=== PATIENT | male | born 1985 | race Caucasian/White ===

== ENCOUNTER → 2016-05-17 | Outpatient (CLI) | payer MEDICAID | LOC: M OUTALCOH 09:16 | PROVIDERS: ATTEND Psychiatry & Neurology Psychiatry | DX: Z13.9 Encounter for screening, unspecified (principal); F14.20 Cocaine dependence, uncomplicated; F12.20 Cannabis dependence, uncomplicated ==

== ENCOUNTER 2016-05-18 10:36 | Emergency (ER) | payer MEDICAID ==
[2016-05-18 11:48] LABS: MEAN CORPUSCULAR HEMOGLOBIN 30.3 pg (27.0-33.0); MEAN CORPUSCULAR HGB CONC 34.4 g/dl (32.0-36.5); MEAN CORPUSCULAR VOLUME 88.1 fl (80.0-96.0); RED CELL DISTRIBUTION WIDTH 12.4 % (11.5-14.5); WHITE BLOOD COUNT 4.3 K/mm3 (4.0-10.0)
[2016-05-18 12:16] LABS: ALBUMIN 4.1 GM/DL (3.2-5.2); ALBUMIN/GLOBULIN RATIO 1.52 (1.00-1.93); ALKALINE PHOSPHATASE 57 U/L (45-117); ALT/SGPT 21 U/L (12-78); ANION GAP 8 MEQ/L (8-16); AST/SGOT 14 U/L (15-37); BILIRUBIN,DIRECT 0.2 MG/DL (0.0-0.2); BILIRUBIN,TOTAL 0.8 MG/DL (0.2-1.0); BLOOD UREA NITROGEN 14 MG/DL (7-18); CALCIUM LEVEL 8.9 MG/DL (8.5-10.1); CARBON DIOXIDE LEVEL 29 MEQ/L (21-32); CHLORIDE LEVEL 105 MEQ/L (98-107); CREATININE FOR GFR 1.28 MG/DL (0.70-1.30); GLOMERULAR FILTRATION RATE > 60.0 (>60); GLUCOSE, FASTING 98 MG/DL (70-105); POTASSIUM SERUM 4.5 MEQ/L (3.5-5.1); SODIUM LEVEL 142 MEQ/L (136-145); TOTAL PROTEIN 6.8 GM/DL (6.4-8.2)
[2016-05-18 12:56] LABS: AMPHETAMINES LEVEL URINE NEGATIVE (NEGATIVE); BENZODIAZEPINES URINE NEGATIVE (NEGATIVE); COCAINE METABOLITE URINE POSITIVE (NEGATIVE); CONTROL LINE INT CTR LINE PRESENT; METHADONE URINE NEGATIVE (NEGATIVE); OPIATES URINE NEGATIVE (NEGATIVE); TRICYCLIC ANTIDEPRESS URINE NEGATIVE (NEGATIVE)
--- NOTE | 2016-05-18 13:58 | EDDOCDS ---
Physician Documentation [facility] Name: Renny Lazo Age: 30 yrs Sex: Male : 1985 Arrival Date: 05/18/2016 Time: 10:36 Bed U3 Private MD: No Pcp Disposition: 05/18/16 13:32 Discharged to Home/Self Care. Impression: Anxiety disorder, unspecified. - Condition is Stable. - Discharge Instructions: Depression, Adult, Generalized Anxiety Disorder. - Medication Reconciliation, Local Pharmacy Hours form. - Follow up: [facility]; When: 4 - 5 days; Reason: Recheck today's complaints. - Problem is new. - Symptoms have improved. - Notes: You were seen in the ED for a mental health evaluation with concerns for anxiety. Bloodwork showed no acute findings, drug screen was positive for cocaine and marijuana. Psychiatry was consulted and recommended you may return home to be seen for outpatient follow-up. Please call as directed by your psychosocial assesor and arrange to be seen. Return to the ED for any worsening depression, thoughts of harming self or others or any other concerns. Historical: - Allergies: no known allergies; - Home Meds: 1. amoxicillin 500 mg Oral cap 1 cap every 8 hours (Last dose: 05/18/2016 07:00) 2. Motrin 800 mg Oral tab 1 tab 3 times per day (Last dose: 05/18/2016 07:00) - PMHx: Substance Abuse; - PSHx: none; - Social history: Smoking status: Patient states was never smoker of tobacco. Patient uses street drugs, marijuana, cocaine, No barriers to communication noted, Speaks appropriately for age. - Family history: Not pertinent. - : The pt / caregiver states he / she is not on anticoagulants. Home medication list is obtained from. - Exposure Risk Screening:: None identified. Vital Signs: 05/18 10:38 BP 106 / 70; Pulse 56; Resp 18; Temp 98.9; Pulse Ox 100% ; Weight 81.65 kg / 180.01 elp lbs; Height 6 ft. 3 in. (190.50 cm); Pain 0/10; 13:52 BP 133 / 88; Pulse 58; Resp 16; Temp 98.7(TE); Pulse Ox 98% on R/A; jo3 10:38 Body Mass Index 22.50 (81.65 kg, 190.50 cm) elp MDM: 11:03 Consult PFS/PSA/Power Plant Operator Apprentice ordered. br1 11:03 Consult PFS/PSA/Power Plant Operator Apprentice: Patient's case requires discussion with on-call br1 Psychiatrist ordered. 11:03 PSA/PFS to call Nursing Drawing Tracer, to enter patient data on [place] Safe Act if patient br1 involuntarily admitted or transferred for SI or HI ordered. 11:03 Confirm accurate psychiatric medication list and times of last dosage ordered. br1 11:03 Detain Pt Until Medically/PFS Cleared ordered. br1 11:04 Acetaminophen Level Ordered. EDMS 11:04 Basic Metabolic Profile Ordered. EDMS 11:04 Complete Blood Count Ordered. EDMS 11:04 Drug Eval Toxicology ED Only Ordered. EDMS 11:04 Ethyl Alcohol (ethanol) Ordered. EDMS 11:04 Liver Profile Ordered. EDMS 11:04 Salicylate Level Ordered. EDMS 11:04 Thyroid Stimulating Hormone Ordered. EDMS 11:23 Financial registration complete. pm4 11:30 REGULAR DIET PLASTIC GAINES+DIET ordered. EDMS 12:00 [facility] Payment Agreement was scanned into [employer] and attached to record. pm4 13:28 Acetaminophen Level Reviewed. br1 13:28 Drug Eval Toxicology ED Only Reviewed. br1 13:28 Liver Profile Reviewed. br1 13:28 Salicylate Level Reviewed. br1 13:28 Basic Metabolic Profile Reviewed. br1 13:28 Complete Blood Count Reviewed. br1 13:28 Ethyl Alcohol (ethanol) Reviewed. br1 13:28 Thyroid Stimulating Hormone Reviewed. br1 13:29 Consult PFS/PSA/Socail Worker: Cleared medically for eval ordered. br1 Signatures: Dispatcher [employer] EDMS Pauline SilvaRN RN jo3 Matias Pan MD MD br1 Dontrell Patton RN RN ml6 Eze Ramirez, Reg Reg pm4 The chart was reviewed and I authenticate all verbal orders and agree with the evaluation and treatment provided.Attachments: 12:00 [facility] Payment Agreement pm4 MTDD
--- NOTE | 2016-05-18 13:58 | EDDOCDS ---
Nurse's Notes [facility] Name: Renny Lazo Age: 30 yrs Sex: Male : 1985 Arrival Date: 05/18/2016 Time: 10:36 Bed [facility]3 Private MD: No Pcp Diagnosis: Anxiety disorder, unspecified Presentation: 05/18 10:38 Presenting complaint: Patient states: states that he has a bed at [facility] for rehab ml6 for crack cocaine abuse, states that he is anxious and afraid he is going to use before then. Patient denies SI or HI. Presenting complaint:. Mental Health Triage Level: Level 1- Pt displays no suicidal or homicidal ideations and does not appear to be a danger to self or others. Adult Sepsis Screening: The patient does not have new or worsening altered mentation. Patient's respiratory rate is less than 22. Systolic blood pressure is greater than 100. Patient has a qSOFA score of 0- Negative Sepsis Screen. Suicide/Homicide risk assessment- the patient denies having any suicidal and/or homicidal ideations and does not present with any other emotional, behavioral or mental health complaints. Status: Patient is not a service line bus cleaner or dependent. Transition of care: patient was not received from another setting of care. Red Flag criteria, patient assessed and taken directly to a bed. 10:38 Acuity: ROB Level 4 ml6 10:38 Method Of Arrival: Walkin/Carried/Asstd ml6 Triage Assessment: 10:53 General: Appears in no apparent distress, Behavior is appropriate for age, cooperative. ml6 Pain: Denies pain. HIV screening NA for this visit Offered previously. Neurological: No deficits noted. Level of Consciousness is awake, alert, Oriented to person, place, time, Front Office Assistant are equal bilaterally Moves all extremities. Full function. Cardiovascular: Capillary refill < 3 seconds is brisk in bilateral fingers toes Heart tones S1 S2 present. Respiratory: No deficits noted. Airway is patent Respiratory effort is even, unlabored, Respiratory pattern is regular, symmetrical. GI: No deficits noted. Historical: - Allergies: no known allergies; - Home Meds: 1. amoxicillin 500 mg Oral cap 1 cap every 8 hours (Last dose: 05/18/2016 07:00) 2. Motrin 800 mg Oral tab 1 tab 3 times per day (Last dose: 05/18/2016 07:00) - PMHx: Substance Abuse; - PSHx: none; - Social history: Smoking status: Patient states was never smoker of tobacco. Patient uses street drugs, marijuana, cocaine, No barriers to communication noted, Speaks appropriately for age. - Family history: Not pertinent. - : The pt / caregiver states he / she is not on anticoagulants. Home medication list is obtained from. - Exposure Risk Screening:: None identified. Screenin:27 Screening information is obtained from the patient. Fall risk: No risks identified. jo3 Assistance ADL's: requires no assistance with activities of daily living. Abuse/DV Screen: The patient / caregiver reports he/she is: not in a situation that causes fear, pain or injury. Nutritional screening: No deficits noted. Advance Directives: There is no active DNR order. home support is adequate. Assessment: 11:31 General: Appears in no apparent distress, Behavior is anxious, cooperative, pleasant. jo3 General: Pt denies SI/HI. States that he uses "a lot" of crack cocaine on a daily basis and has not used for 2 days. Has a bed at treatment facility on Saturday . Neurological: Level of Consciousness is awake, alert, Oriented to person, place, time. Cardiovascular: No deficits noted. Respiratory: Airway is patent Respiratory effort is even, unlabored. Derm: Skin is pink, warm & dry. 12:25 Reassessment: Patient appears in no apparent distress at this time. Patient denies pain jo3 at this time. Security observing. Mother at bedside . 13:27 General: Appears in no apparent distress, comfortable, Behavior is anxious, jo3 cooperative, pleasant. General: Security observing. Neurological: No deficits noted. Respiratory: No deficits noted. Airway is patent Respiratory effort is even, unlabored. Mental Health Eval: 12:29 Mental health consult is initiated at 11:30. Status: The patient is not a service line bus cleaner or dependent. [facility] Behavioral Health: The patient is established as a patient of [facility] Behavioral Health. Referral Information: Evaluation referral is generated by the patient himself / herself. The patient was referred for evaluation because Pt states he is scheduled to go to rehab for methamphetamine use on Saturday at [facility]. Pt states it was recommended that he receive a "psychological evaluation" for his anxiety prior to his admission. Subjective: The patients chief complaint is I started having panic attacks after stopping crack. I am going to [facility] on Saturday, but I was told to come here. I'm not suicidal or homicidal, I'm just having a lot of anxiety. 12:57 Disposition: Medically cleared for disposition by Matias Pan MD Psychiatric Consult ac is performed by phone with Dr Juan Palma. Vital Signs: 10:38 BP 106 / 70; Pulse 56; Resp 18; Temp 98.9; Pulse Ox 100% ; Weight 81.65 kg; Height 6 elp ft. 3 in. (190.50 cm); Pain 0/10; 13:52 BP 133 / 88; Pulse 58; Resp 16; Temp 98.7(TE); Pulse Ox 98% on R/A; jo3 10:38 Body Mass Index 22.50 (81.65 kg, 190.50 cm) elp Vitals: 10:38 Log In Time: May 18, 2016 at 10:36. RN notified that patient meets Red Flag elp criteria. ED Course: 10:37 Patient visited by Ruby Romero PCA. elp 10:37 No Pcp is Private Physician. elp 10:37 Patient moved to Waiting elp 10:38 Patient visited by Ruby Romero PCA. elp 10:40 Patient moved to [facility] ml6 10:44 Matias Pan MD is Attending Physician. br1 10:50 Triage Initiated ml6 10:56 Patient visited by Francisco Lacey. dpm 11:02 Patient visited by Matias Pan MD. br1 11:06 Pt greeted and oriented to ED. Patient advised of names of staff involved in care, dpm location of call more[place], wait times and NPO status. Patient has correct armband on for positive identification. Bed in low position. Side rails up X 1. Security observing. Property left with pt per RNOctav[place]. PT mental health triage doesn't require the pt to change. Psych Safety Check: Location: Psych Room. Visual Assessment: Cooperative. 11:20 Patient visited by Francisco Lacey. dpm 11:25 Labs drawn. (by ED staff). Sent per order to lab. jo3 11:28 Acetaminophen Level Sent. jo3 11:28 Basic Metabolic Profile Sent. jo3 11:28 Complete Blood Count Sent. jo3 11:28 Drug Eval Toxicology ED Only Sent. jo3 11:28 Ethyl Alcohol (ethanol) Sent. jo3 11:28 Liver Profile Sent. jo3 11:28 Salicylate Level Sent. jo3 11:28 Thyroid Stimulating Hormone Sent. jo3 11:30 Patient visited by Francisco Lacey. dpm 11:32 Patient visited by Pauline Silva,REDDY. jo3 11:34 Patient name changed from Renny\\S\\\\S\\Clifton\\S\\ to Renny\\S\\Marvel\\S\\Clifton. EDMS 11:50 Patient visited by Francisco Lacey. dpm 12:00 [facility] Payment Agreement was scanned into [employer] and attached to record. pm4 12:07 Patient visited by Dontrell Patton RN. ml6 12:28 Patient visited by Francisco Lacey. dpm 12:29 Placed in psych safe attire. requested the pt to be changed. Property dpm removed, inventory done, secured in belongings bag- placed in locked locker. Placed in locker 3. 12:45 Patient visited by Francisco Lacey. dpm 13:27 The patient / caregiver is instructed regarding the plan of care and ED course. jo3 13:27 No IV's were initiated during this patient's visit. jo3 13:28 Patient visited by Pauline Silva RN. jo3 13:31 [facility] is Referral Physician. br1 13:52 No procedures done that require assistance. jo3 Order Results: Lab Order: Acetaminophen Level; SPEC'M 05/18/16 11:24 Test: ACETAMINOPHEN LEVEL; Value: < 2.0; Range: 10.0-30.0; Abnormal: Below low normal; Units: UG/ML; Status: F Lab Order: Basic Metabolic Profile; SPEC'M 05/18/16 11:24 Test: GLUCOSE, FASTING; Value: 98; Range: 70-105; Units: MG/DL; Status: F Test: BLOOD UREA NITROGEN; Value: 14; Range: 7-18; Units: MG/DL; Status: F Test: CREATININE FOR GFR; Value: 1.28; Range: 0.70-1.30; Units: MG/DL; Status: F Test: GLOMERULAR FILTRATION RATE; Value: > 60.0; Range: >60; Status: F Test: SODIUM LEVEL; Value: 142; Range: 136-145; Units: MEQ/L; Status: F Test: POTASSIUM SERUM; Value: 4.5; Range: 3.5-5.1; Units: MEQ/L; Status: F Test: CHLORIDE LEVEL; Value: 105; Range: 98-107; Units: MEQ/L; Status: F Test: CARBON DIOXIDE LEVEL; Value: 29; Range: 21-32; Units: MEQ/L; Status: F Test: ANION GAP; Value: 8; Range: 8-16; Units: MEQ/L; Status: F Test: CALCIUM LEVEL; Value: 8.9; Range: 8.5-10.1; Units: MG/DL; Status: F Test Note: ; Units are mL/min/1.73 m2 Chronic Kidney Disease Staging per NKF: Stage I & II GFR >=60 Normal to Mildly Decreased Stage III GFR 30-59 Moderately Decreased Stage IV GFR 15-29 Severely Decreased Stage V GFR <15 Very Little GFR Left ESRD GFR <15 on TOP LIFT COMPRESSER Lab Order: Complete Blood Count; SPEC'M 05/18/16 11:24 Test: WHITE BLOOD COUNT; Value: 4.3; Range: 4.0-10.0; Units: K/mm3; Status: F Test: RED BLOOD COUNT; Value: 5.55; Range: 4.30-6.10; Units: M/mm3; Status: F Test: HEMOGLOBIN; Value: 16.8; Range: 14.0-18.0; Units: g/dl; Status: F Test: HEMATOCRIT; Value: 48.9; Range: 42.0-52.0; Units: %; Status: F Test: MEAN CORPUSCULAR VOLUME; Value: 88.1; Range: 80.0-96.0; Units: fl; Status: F Test: MEAN CORPUSCULAR HEMOGLOBIN; Value: 30.3; Range: 27.0-33.0; Units: pg; Status: F Test: MEAN CORPUSCULAR HGB CONC; Value: 34.4; Range: 32.0-36.5; Units: g/dl; Status: F Test: RED CELL DISTRIBUTION WIDTH; Value: 12.4; Range: 11.5-14.5; Units: %; Status: F Test: PLATELET COUNT, AUTOMATED; Value: 249; Range: 150-450; Units: k/mm3; Status: F Lab Order: Drug Eval Toxicology ED Only; SPEC'M 05/18/16 11:24 Test: AMPHETAMINES LEVEL URINE; Value: NEGATIVE; Range: NEGATIVE; Status: F Test: BARBITURATES URINE; Value: NEGATIVE; Range: NEGATIVE; Status: F Test: BENZODIAZEPINES URINE; Value: NEGATIVE; Range: NEGATIVE; Status: F Test: CANNABINOIDS URINE; Value: POSITIVE; Range: NEGATIVE; Abnormal: Above high normal; Status: F Test: COCAINE METABOLITE URINE; Value: POSITIVE; Range: NEGATIVE; Abnormal: Above high normal; Status: F Test: METHADONE URINE; Value: NEGATIVE; Range: NEGATIVE; Status: F Test: OPIATES URINE; Value: NEGATIVE; Range: NEGATIVE; Status: F Test: TRICYCLIC ANTIDEPRESS URINE; Value: NEGATIVE; Range: NEGATIVE; Status: F Test Note: ; FALSE POSITIVE RESULTS CAN BE CAUSED BY THE USE OF PANTOPRAZOLE (PROTONIX). Lab Order: Ethyl Alcohol (ethanol); SPEC'M 05/18/16 11:24 Test: ETHYL ALCOHOL (ETHANOL); Value: 0.004; Range: 0.000-0.010; Units: %; Status: F Lab Order: Liver Profile; SPEC'M 05/18/16 11:24 Test: AST/SGOT; Value: 14; Range: 15-37; Abnormal: Below low normal; Units: U/L; Status: F Test: ALT/SGPT; Value: 21; Range: 12-78; Units: U/L; Status: F Test: ALKALINE PHOSPHATASE; Value: 57; Range: 45-117; Units: U/L; Status: F Test: BILIRUBIN,TOTAL; Value: 0.8; Range: 0.2-1.0; Units: MG/DL; Status: F Test: BILIRUBIN,DIRECT; Value: 0.2; Range: 0.0-0.2; Units: MG/DL; Status: F Test: TOTAL PROTEIN; Value: 6.8; Range: 6.4-8.2; Units: GM/DL; Status: F Test: ALBUMIN; Value: 4.1; Range: 3.2-5.2; Units: GM/DL; Status: F Test: ALBUMIN/GLOBULIN RATIO; Value: 1.52; Range: 1.00-1.93; Status: F Lab Order: Salicylate Level; SPEC'M 05/18/16 11:24 Test: SALICYLATE LEVEL; Value: < 1.7; Range: 5.0-30.0; Abnormal: Below low normal; Units: MG/DL; Status: F Lab Order: Thyroid Stimulating Hormone; SPEC'M 05/18/16 11:24 Test: THYROID STIMULATING HORMONE; Value: 0.736; Range: 0.358-3.740; Units: uIU/ML; Status: F Outcome: 13:32 Discharge ordered by Provider. br1 13:52 Discharge Assessment: Patient awake, alert and oriented x 3. No cognitive and/or jo3 functional deficits noted. Patient verbalized understanding of disposition instructions. patient administered narcotics - no. The following High Risk Discharge criteria are identified: None. Discharged to home ambulatory, with parent. Condition: stable. No special radiology studies were completed. 13:57 Patient left the ED. jo3 Signatures: Dispatcher [employer] EDMS Shay Lima, PSA PSA ac Pauline Silva RN RN jo3 Matias Pan MD MD br1 Dontrell Patton RN RN ml6 Francisco Lacey dpRuby Henderson, JAKOB SHIPBUILDING DRAFTSPERSON elEze Awad, Reg Reg pm4 Corrections: (The following items were deleted from the chart) 13:34 12:29 Subjective: The patients chief complaint is I started having panic attacks after ac stopping meth. I am going to [facility] on Saturday, but I was told to come here. I'm not suicidal or homicidal, I'm just having a lot of anxiety. ac MTDD
--- NOTE | 2016-05-20 14:58 | EDDOCDS ---
Nurse's Notes [facility] Name: Renny Lazo Age: 30 yrs Sex: Male : 1985 Arrival Date: 05/18/2016 Time: 10:36 Bed [facility] Private MD: No Pcp Diagnosis: Anxiety disorder, unspecified Presentation: 05/18 10:38 Presenting complaint: Patient states: states that he has a bed at [facility] for rehab ml6 for crack cocaine abuse, states that he is anxious and afraid he is going to use before then. Patient denies SI or HI. Presenting complaint:. Mental Health Triage Level: Level 1- Pt displays no suicidal or homicidal ideations and does not appear to be a danger to self or others. Adult Sepsis Screening: The patient does not have new or worsening altered mentation. Patient's respiratory rate is less than 22. Systolic blood pressure is greater than 100. Patient has a qSOFA score of 0- Negative Sepsis Screen. Suicide/Homicide risk assessment- the patient denies having any suicidal and/or homicidal ideations and does not present with any other emotional, behavioral or mental health complaints. Status: Patient is not a services tech or dependent. Transition of care: patient was not received from another setting of care. Red Flag criteria, patient assessed and taken directly to a bed. 10:38 Acuity: ROB Level 4 ml6 10:38 Method Of Arrival: Walkin/Carried/Asstd ml6 Triage Assessment: 10:53 General: Appears in no apparent distress, Behavior is appropriate for age, cooperative. ml6 Pain: Denies pain. HIV screening NA for this visit Offered previously. Neurological: No deficits noted. Level of Consciousness is awake, alert, Oriented to person, place, time, Test Rack Operator are equal bilaterally Moves all extremities. Full function. Cardiovascular: Capillary refill < 3 seconds is brisk in bilateral fingers toes Heart tones S1 S2 present. Respiratory: No deficits noted. Airway is patent Respiratory effort is even, unlabored, Respiratory pattern is regular, symmetrical. GI: No deficits noted. Historical: - Allergies: no known allergies; - Home Meds: 1. amoxicillin 500 mg Oral cap 1 cap every 8 hours (Last dose: 05/18/2016 07:00) 2. Motrin 800 mg Oral tab 1 tab 3 times per day (Last dose: 05/18/2016 07:00) - PMHx: Substance Abuse; - PSHx: none; - Social history: Smoking status: Patient states was never smoker of tobacco. Patient uses street drugs, marijuana, cocaine, No barriers to communication noted, Speaks appropriately for age. - Family history: Not pertinent. - : The pt / caregiver states he / she is not on anticoagulants. Home medication list is obtained from. - Exposure Risk Screening:: None identified. Screenin:27 Screening information is obtained from the patient. Fall risk: No risks identified. jo3 Assistance ADL's: requires no assistance with activities of daily living. Abuse/DV Screen: The patient / caregiver reports he/she is: not in a situation that causes fear, pain or injury. Nutritional screening: No deficits noted. Advance Directives: There is no active DNR order. home support is adequate. Assessment: 11:31 General: Appears in no apparent distress, Behavior is anxious, cooperative, pleasant. jo3 General: Pt denies SI/HI. States that he uses "a lot" of crack cocaine on a daily basis and has not used for 2 days. Has a bed at treatment facility on Saturday . Neurological: Level of Consciousness is awake, alert, Oriented to person, place, time. Cardiovascular: No deficits noted. Respiratory: Airway is patent Respiratory effort is even, unlabored. Derm: Skin is pink, warm & dry. 12:25 Reassessment: Patient appears in no apparent distress at this time. Patient denies pain jo3 at this time. Security observing. Mother at bedside . 13:27 General: Appears in no apparent distress, comfortable, Behavior is anxious, jo3 cooperative, pleasant. General: Security observing. Neurological: No deficits noted. Respiratory: No deficits noted. Airway is patent Respiratory effort is even, unlabored. Mental Health Eval: 12:29 Mental health consult is initiated at 11:30. Status: The patient is not a services tech or dependent. [facility] Behavioral Health: The patient is established as a patient of [facility] Behavioral Health. Referral Information: Evaluation referral is generated by the patient himself / herself. The patient was referred for evaluation because Pt states he is scheduled to go to rehab for methamphetamine use on Saturday at [facility]. Pt states it was recommended that he receive a "psychological evaluation" for his anxiety prior to his admission. Subjective: The patients chief complaint is I started having panic attacks after stopping crack. I am going to [facility] on Saturday, but I was told to come here. I'm not suicidal or homicidal, I'm just having a lot of anxiety. 12:57 Disposition: Medically cleared for disposition by Matias Pan MD Psychiatric Consult ac is performed by phone with Dr Juan Palma. 14:20 Mental Health history: no relevant mental health problems or treatments. Mental Health ac Admissions: None. Current Outpatient Mental Health Services: None. Current living environment is The patient currently lives with his / her father, . Patient presents to Emergency Department with the following symptoms within the past 2 weeks: anxiety, drug abuse. Substance abuse: Patient uses cocaine, Patient uses marijuana. Mental status exam: Patients appearance is appropriate, Patient's behavior is cooperative, Speech is normal. Affect is appropriate. Mood is anxious. Hallucinations are denied. Appetite is normal. Memory is good. Energy level is normal. Content of thought is normal. Thought process is intact. Cognitive level is oriented to person, place, time and situation Patient's insight is fair. Judgement is fair. Rapport with interviewer is good. Suicidal Ideation is not present. Homicidal ideation is not present. [facility] Admission Criteria: Not Applicable. DSM-V Differential Diagnosis: Social Communication Disorder. Stimulant Use Disorder, Pt uses cocaine. Vital Signs: 10:38 BP 106 / 70; Pulse 56; Resp 18; Temp 98.9; Pulse Ox 100% ; Weight 81.65 kg; Height 6 elp ft. 3 in. (190.50 cm); Pain 0/10; 13:52 BP 133 / 88; Pulse 58; Resp 16; Temp 98.7(TE); Pulse Ox 98% on R/A; jo3 10:38 Body Mass Index 22.50 (81.65 kg, 190.50 cm) elp Vitals: 10:38 Log In Time: May 18, 2016 at 10:36. RN notified that patient meets Red Flag elp criteria. ED Course: 10:37 Patient visited by Ruby Romero PCA. elp 10:37 No Pcp is Private Physician. elp 10:37 Patient moved to Waiting elp 10:38 Patient visited by Ruby Romero PCA. elp 10:40 Patient moved to [facility] ml6 10:44 Matias Pan MD is Attending Physician. br1 10:50 Triage Initiated ml6 10:56 Patient visited by Francisco Lacey. dpm 11:02 Patient visited by Matias Pan MD. br1 11:06 Pt greeted and oriented to ED. Patient advised of names of staff involved in care, dpm location of call moreno, wait times and NPO status. Patient has correct armband on for positive identification. Bed in low position. Side rails up X 1. Security observing. Property left with pt per RN, Octaviano Patton. PT mental health triage doesn't require the pt to change. Psych Safety Check: Location: Psych Room. Visual Assessment: Cooperative. 11:20 Patient visited by Francisco Lacey. dpm 11:25 Labs drawn. (by ED staff). Sent per order to lab. jo3 11:28 Acetaminophen Level Sent. jo3 11:28 Basic Metabolic Profile Sent. jo3 11:28 Complete Blood Count Sent. jo3 11:28 Drug Eval Toxicology ED Only Sent. jo3 11:28 Ethyl Alcohol (ethanol) Sent. jo3 11:28 Liver Profile Sent. jo3 11:28 Salicylate Level Sent. jo3 11:28 Thyroid Stimulating Hormone Sent. jo3 11:30 Patient visited by Francisco Lacey. dpm 11:32 Patient visited by Pauline Silva RN. jo3 11:34 Patient name changed from Renny\\S\\\\S\\Cook\\S\\ to Renny\\S\\Marvel\\S\\Clifton. EDMS 11:50 Patient visited by Francisco Lacey. dpm 12:00 [facility] Payment Agreement was scanned into [employer] and attached to record. pm4 12:07 Patient visited by Dontrell Patton RN. ml6 12:28 Patient visited by Francisco Lacey. dpm 12:29 Placed in psych safe attire. requested the pt to be changed. Property dpm removed, inventory done, secured in belongings bag- placed in locked locker. Placed in locker 3. 12:45 Patient visited by Francisco Lacey. dpm 13:27 The patient / caregiver is instructed regarding the plan of care and ED course. jo3 13:27 No IV's were initiated during this patient's visit. jo3 13:28 Patient visited by Pauline Silva RN. jo3 13:31 [facility] is Referral Physician. br1 13:52 No procedures done that require assistance. jo3 05/19 09:08 T-Sheet-- Draft Copy was scanned into [employer] and attached to record. gb Order Results: Lab Order: Acetaminophen Level; SPEC'M 05/18/16 11:24 Test: ACETAMINOPHEN LEVEL; Value: < 2.0; Range: 10.0-30.0; Abnormal: Below low normal; Units: UG/ML; Status: F Lab Order: Basic Metabolic Profile; SPEC'M 05/18/16 11:24 Test: GLUCOSE, FASTING; Value: 98; Range: 70-105; Units: MG/DL; Status: F Test: BLOOD UREA NITROGEN; Value: 14; Range: 7-18; Units: MG/DL; Status: F Test: CREATININE FOR GFR; Value: 1.28; Range: 0.70-1.30; Units: MG/DL; Status: F Test: GLOMERULAR FILTRATION RATE; Value: > 60.0; Range: >60; Status: F Test: SODIUM LEVEL; Value: 142; Range: 136-145; Units: MEQ/L; Status: F Test: POTASSIUM SERUM; Value: 4.5; Range: 3.5-5.1; Units: MEQ/L; Status: F Test: CHLORIDE LEVEL; Value: 105; Range: 98-107; Units: MEQ/L; Status: F Test: CARBON DIOXIDE LEVEL; Value: 29; Range: 21-32; Units: MEQ/L; Status: F Test: ANION GAP; Value: 8; Range: 8-16; Units: MEQ/L; Status: F Test: CALCIUM LEVEL; Value: 8.9; Range: 8.5-10.1; Units: MG/DL; Status: F Test Note: ; Units are mL/min/1.73 m2 Chronic Kidney Disease Staging per NKF: Stage I & II GFR >=60 Normal to Mildly Decreased Stage III GFR 30-59 Moderately Decreased Stage IV GFR 15-29 Severely Decreased Stage V GFR <15 Very Little GFR Left ESRD GFR <15 on BEAUTY CONSULTANT Lab Order: Complete Blood Count; SPEC'M 05/18/16 11:24 Test: WHITE BLOOD COUNT; Value: 4.3; Range: 4.0-10.0; Units: K/mm3; Status: F Test: RED BLOOD COUNT; Value: 5.55; Range: 4.30-6.10; Units: M/mm3; Status: F Test: HEMOGLOBIN; Value: 16.8; Range: 14.0-18.0; Units: g/dl; Status: F Test: HEMATOCRIT; Value: 48.9; Range: 42.0-52.0; Units: %; Status: F Test: MEAN CORPUSCULAR VOLUME; Value: 88.1; Range: 80.0-96.0; Units: fl; Status: F Test: MEAN CORPUSCULAR HEMOGLOBIN; Value: 30.3; Range: 27.0-33.0; Units: pg; Status: F Test: MEAN CORPUSCULAR HGB CONC; Value: 34.4; Range: 32.0-36.5; Units: g/dl; Status: F Test: RED CELL DISTRIBUTION WIDTH; Value: 12.4; Range: 11.5-14.5; Units: %; Status: F Test: PLATELET COUNT, AUTOMATED; Value: 249; Range: 150-450; Units: k/mm3; Status: F Lab Order: Drug Eval Toxicology ED Only; SPEC'M 05/18/16 11:24 Test: AMPHETAMINES LEVEL URINE; Value: NEGATIVE; Range: NEGATIVE; Status: F Test: BARBITURATES URINE; Value: NEGATIVE; Range: NEGATIVE; Status: F Test: BENZODIAZEPINES URINE; Value: NEGATIVE; Range: NEGATIVE; Status: F Test: CANNABINOIDS URINE; Value: POSITIVE; Range: NEGATIVE; Abnormal: Above high normal; Status: F Test: COCAINE METABOLITE URINE; Value: POSITIVE; Range: NEGATIVE; Abnormal: Above high normal; Status: F Test: METHADONE URINE; Value: NEGATIVE; Range: NEGATIVE; Status: F Test: OPIATES URINE; Value: NEGATIVE; Range: NEGATIVE; Status: F Test: TRICYCLIC ANTIDEPRESS URINE; Value: NEGATIVE; Range: NEGATIVE; Status: F Test Note: ; FALSE POSITIVE RESULTS CAN BE CAUSED BY THE USE OF PANTOPRAZOLE (PROTONIX). Lab Order: Ethyl Alcohol (ethanol); SPEC'M 05/18/16 11:24 Test: ETHYL ALCOHOL (ETHANOL); Value: 0.004; Range: 0.000-0.010; Units: %; Status: F Lab Order: Liver Profile; SPEC'M 05/18/16 11:24 Test: AST/SGOT; Value: 14; Range: 15-37; Abnormal: Below low normal; Units: U/L; Status: F Test: ALT/SGPT; Value: 21; Range: 12-78; Units: U/L; Status: F Test: ALKALINE PHOSPHATASE; Value: 57; Range: 45-117; Units: U/L; Status: F Test: BILIRUBIN,TOTAL; Value: 0.8; Range: 0.2-1.0; Units: MG/DL; Status: F Test: BILIRUBIN,DIRECT; Value: 0.2; Range: 0.0-0.2; Units: MG/DL; Status: F Test: TOTAL PROTEIN; Value: 6.8; Range: 6.4-8.2; Units: GM/DL; Status: F Test: ALBUMIN; Value: 4.1; Range: 3.2-5.2; Units: GM/DL; Status: F Test: ALBUMIN/GLOBULIN RATIO; Value: 1.52; Range: 1.00-1.93; Status: F Lab Order: Salicylate Level; SPEC'M 05/18/16 11:24 Test: SALICYLATE LEVEL; Value: < 1.7; Range: 5.0-30.0; Abnormal: Below low normal; Units: MG/DL; Status: F Lab Order: Thyroid Stimulating Hormone; SPEC'M 05/18/16 11:24 Test: THYROID STIMULATING HORMONE; Value: 0.736; Range: 0.358-3.740; Units: uIU/ML; Status: F Outcome: 05/18 13:32 Discharge ordered by Provider. br1 13:52 Discharge Assessment: Patient awake, alert and oriented x 3. No cognitive and/or jo3 functional deficits noted. Patient verbalized understanding of disposition instructions. patient administered narcotics - no. The following High Risk Discharge criteria are identified: None. Discharged to home ambulatory, with parent. Condition: stable. No special radiology studies were completed. 13:57 Patient left the ED. jo3 Signatures: Dispatcher [employer] EDMS Shay Lima, ANTONIO PSA Stacy Raman, Pauline Uribe RN RN jo3 Matias Pan MD MD br1 Dontrell Patton RN RN ml6 Francisco Lacey dpm Ruby Romero, COLLEGE ADMINISTRATOR COLLEGE ADMINISTRATOR elp Eze Ramirez, Reg Reg pm4 Corrections: (The following items were deleted from the chart) 13:34 12:29 Subjective: The patients chief complaint is I started having panic attacks after ac stopping meth. I am going to [facility] on Saturday, but I was told to come here. I'm not suicidal or homicidal, I'm just having a lot of anxiety. ac Chart Complete MTDD
--- NOTE | 2016-05-20 14:58 | EDDOCDS ---
Physician Documentation [facility] Name: Renny Lazo Age: 30 yrs Sex: Male : 1985 Arrival Date: 05/18/2016 Time: 10:36 Bed U3 Private MD: No Pcp Disposition: 05/18/16 13:32 Discharged to Home/Self Care. Impression: Anxiety disorder, unspecified. - Condition is Stable. - Discharge Instructions: Depression, Adult, Generalized Anxiety Disorder. - Medication Reconciliation, Local Pharmacy Hours form. - Follow up: [facility]; When: 4 - 5 days; Reason: Recheck today's complaints. - Problem is new. - Symptoms have improved. - Notes: You were seen in the ED for a mental health evaluation with concerns for anxiety. Bloodwork showed no acute findings, drug screen was positive for cocaine and marijuana. Psychiatry was consulted and recommended you may return home to be seen for outpatient follow-up. Please call as directed by your psychosocial assesor and arrange to be seen. Return to the ED for any worsening depression, thoughts of harming self or others or any other concerns. Historical: - Allergies: no known allergies; - Home Meds: 1. amoxicillin 500 mg Oral cap 1 cap every 8 hours (Last dose: 05/18/2016 07:00) 2. Motrin 800 mg Oral tab 1 tab 3 times per day (Last dose: 05/18/2016 07:00) - PMHx: Substance Abuse; - PSHx: none; - Social history: Smoking status: Patient states was never smoker of tobacco. Patient uses street drugs, marijuana, cocaine, No barriers to communication noted, Speaks appropriately for age. - Family history: Not pertinent. - : The pt / caregiver states he / she is not on anticoagulants. Home medication list is obtained from. - Exposure Risk Screening:: None identified. Vital Signs: 05/18 10:38 BP 106 / 70; Pulse 56; Resp 18; Temp 98.9; Pulse Ox 100% ; Weight 81.65 kg / 180.01 elp lbs; Height 6 ft. 3 in. (190.50 cm); Pain 0/10; 13:52 BP 133 / 88; Pulse 58; Resp 16; Temp 98.7(TE); Pulse Ox 98% on R/A; jo3 10:38 Body Mass Index 22.50 (81.65 kg, 190.50 cm) elp MDM: 11:03 Consult PFS/PSA/Dry Wall Applicator ordered. br1 11:03 Consult PFS/PSA/Dry Wall Applicator: Patient's case requires discussion with on-call br1 Psychiatrist ordered. 11:03 PSA/PFS to call Nursing Director Of Donor Relations, to enter patient data on [place] Safe Act if patient br1 involuntarily admitted or transferred for SI or HI ordered. 11:03 Confirm accurate psychiatric medication list and times of last dosage ordered. br1 11:03 Detain Pt Until Medically/PFS Cleared ordered. br1 11:04 Acetaminophen Level Ordered. EDMS 11:04 Basic Metabolic Profile Ordered. EDMS 11:04 Complete Blood Count Ordered. EDMS 11:04 Drug Eval Toxicology ED Only Ordered. EDMS 11:04 Ethyl Alcohol (ethanol) Ordered. EDMS 11:04 Liver Profile Ordered. EDMS 11:04 Salicylate Level Ordered. EDMS 11:04 Thyroid Stimulating Hormone Ordered. EDMS 11:23 Financial registration complete. pm4 11:30 REGULAR DIET PLASTIC GAINES+DIET ordered. EDMS 12:00 [facility] [place] Agreement was scanned into [employer] and attached to record. pm4 13:28 Acetaminophen Level Reviewed. br1 13:28 Drug Eval Toxicology ED Only Reviewed. br1 13:28 Liver Profile Reviewed. br1 13:28 Salicylate Level Reviewed. br1 13:28 Basic Metabolic Profile Reviewed. br1 13:28 Complete Blood Count Reviewed. br1 13:28 Ethyl Alcohol (ethanol) Reviewed. br1 13:28 Thyroid Stimulating Hormone Reviewed. br1 13:29 Consult PFS/PSA/Socail Worker: Cleared medically for eval ordered. br1 05/19 09:08 T-Sheet-- Draft Copy was scanned into [employer] and attached to record. gb Signatures: Dispatcher [employer] EDMS Stacy Kim, Reg Reg gb Pauline Silva,RN RN jo3 Matias Pan MD MD br1 Dontrell Patton, RN RN ml6 Eze Ramirez, Reg Reg pm4 The chart was reviewed and I authenticate all verbal orders and agree with the evaluation and treatment provided.Attachments: 05/18 12:00 [facility] Payment Agreement pm4 05/19 09:08 T-Sheet-- Draft Copy gb Chart Complete MTDD
--- NOTE | 2016-05-20 14:58 | EDDOCDS ---
Physician Documentation [facility] Name: Renny Lazo Age: 30 yrs Sex: Male : 1985 Arrival Date: 05/18/2016 Time: 10:36 Bed U3 Private MD: No Pcp Disposition: 05/18/16 13:32 Discharged to Home/Self Care. Impression: Anxiety disorder, unspecified. - Condition is Stable. - Discharge Instructions: Depression, Adult, Generalized Anxiety Disorder. - Medication Reconciliation, Local Pharmacy Hours form. - Follow up: [facility]; When: 4 - 5 days; Reason: Recheck today's complaints. - Problem is new. - Symptoms have improved. - Notes: You were seen in the ED for a mental health evaluation with concerns for anxiety. Bloodwork showed no acute findings, drug screen was positive for cocaine and marijuana. Psychiatry was consulted and recommended you may return home to be seen for outpatient follow-up. Please call as directed by your psychosocial assesor and arrange to be seen. Return to the ED for any worsening depression, thoughts of harming self or others or any other concerns. Historical: - Allergies: no known allergies; - Home Meds: 1. amoxicillin 500 mg Oral cap 1 cap every 8 hours (Last dose: 05/18/2016 07:00) 2. Motrin 800 mg Oral tab 1 tab 3 times per day (Last dose: 05/18/2016 07:00) - PMHx: Substance Abuse; - PSHx: none; - Social history: Smoking status: Patient states was never smoker of tobacco. Patient uses street drugs, marijuana, cocaine, No barriers to communication noted, Speaks appropriately for age. - Family history: Not pertinent. - : The pt / caregiver states he / she is not on anticoagulants. Home medication list is obtained from. - Exposure Risk Screening:: None identified. Vital Signs: 05/18 10:38 BP 106 / 70; Pulse 56; Resp 18; Temp 98.9; Pulse Ox 100% ; Weight 81.65 kg / 180.01 elp lbs; Height 6 ft. 3 in. (190.50 cm); Pain 0/10; 13:52 BP 133 / 88; Pulse 58; Resp 16; Temp 98.7(TE); Pulse Ox 98% on R/A; jo3 10:38 Body Mass Index 22.50 (81.65 kg, 190.50 cm) elp MDM: 11:03 Consult PFS/PSA/Success Coach ordered. br1 11:03 Consult PFS/PSA/Success Coach: Patient's case requires discussion with on-call br1 Psychiatrist ordered. 11:03 PSA/PFS to call Nursing Pet Ambassador, to enter patient data on [place] Safe Act if patient br1 involuntarily admitted or transferred for SI or HI ordered. 11:03 Confirm accurate psychiatric medication list and times of last dosage ordered. br1 11:03 Detain Pt Until Medically/PFS Cleared ordered. br1 11:04 Acetaminophen Level Ordered. EDMS 11:04 Basic Metabolic Profile Ordered. EDMS 11:04 Complete Blood Count Ordered. EDMS 11:04 Drug Eval Toxicology ED Only Ordered. EDMS 11:04 Ethyl Alcohol (ethanol) Ordered. EDMS 11:04 Liver Profile Ordered. EDMS 11:04 Salicylate Level Ordered. EDMS 11:04 Thyroid Stimulating Hormone Ordered. EDMS 11:23 Financial registration complete. pm4 11:30 REGULAR DIET PLASTIC GAINES+DIET ordered. EDMS 12:00 [facility] [place] was scanned into [employer] and attached to record. pm4 13:28 Acetaminophen Level Reviewed. br1 13:28 Drug Eval Toxicology ED Only Reviewed. br1 13:28 Liver Profile Reviewed. br1 13:28 Salicylate Level Reviewed. br1 13:28 Basic Metabolic Profile Reviewed. br1 13:28 Complete Blood Count Reviewed. br1 13:28 Ethyl Alcohol (ethanol) Reviewed. br1 13:28 Thyroid Stimulating Hormone Reviewed. br1 13:29 Consult PFS/PSA/Socail Worker: Cleared medically for eval ordered. br1 05/19 09:08 T-Sheet-- Draft Copy was scanned into [employer] and attached to record. gb Signatures: Dispatcher [employer] EDMS Stacy Kim, Reg Reg gb Pauline Silva,RN RN jo3 Matias Pan MD MD br1 Dontrell Patton, RN RN ml6 Eze Ramirez, Reg Reg pm4 The chart was reviewed and I authenticate all verbal orders and agree with the evaluation and treatment provided.Attachments: 05/18 12:00 [facility] [place] pm4 05/19 09:08 T-Sheet-- Draft Copy gb Chart Complete MTDD
== END 2016-05-18 13:57 | disposition home or self-care (01) ==
LOC: M ED 10:36
DX: F41.9 Anxiety disorder, unspecified (principal); F19.10 Other psychoactive substance abuse, uncomplicated
CPT/HCPCS: 36415; 80048; 80076; 80306; 84443; 85027; 99284; G0480

== ENCOUNTER 2016-06-07 07:50 | Inpatient (IN) | payer MEDICAID, OTHER ==
[~2016-06-07] VITALS: Ht 190.5 cm; Wt 88.8 kg
[2016-06-07 08:27] LABS: MEAN CORPUSCULAR HEMOGLOBIN 29.8 pg (27.0-33.0); MEAN CORPUSCULAR HGB CONC 34.2 g/dl (32.0-36.5); RED CELL DISTRIBUTION WIDTH 13.6 % (11.5-14.5); WHITE BLOOD COUNT 5.5 K/mm3 (4.0-10.0)
[2016-06-07] MEDS ORDERED: TRAZ100T4 PO (08:29)
[2016-06-07] MEDS ORDERED: PAXI20TA3 PO (08:29)
[2016-06-07 08:36] LABS: AMPHETAMINES LEVEL URINE NEGATIVE (NEGATIVE); BENZODIAZEPINES URINE NEGATIVE (NEGATIVE); COCAINE METABOLITE URINE POSITIVE (NEGATIVE); CONTROL LINE INT CTR LINE PRESENT; METHADONE URINE NEGATIVE (NEGATIVE); OPIATES URINE NEGATIVE (NEGATIVE); TRICYCLIC ANTIDEPRESS URINE NEGATIVE (NEGATIVE)
[2016-06-07 08:51] LABS: ALBUMIN/GLOBULIN RATIO 1.54 (1.00-1.93); ALKALINE PHOSPHATASE 54 U/L (45-117); ALT/SGPT 22 U/L (12-78); ANION GAP 9 MEQ/L (8-16); AST/SGOT 26 U/L (15-37); BILIRUBIN,DIRECT 0.2 MG/DL (0.0-0.2); BILIRUBIN,TOTAL 0.7 MG/DL (0.2-1.0); BLOOD UREA NITROGEN 14 MG/DL (7-18); CARBON DIOXIDE LEVEL 27 MEQ/L (21-32); CHLORIDE LEVEL 108 MEQ/L (98-107); CREATININE FOR GFR 0.98 MG/DL (0.70-1.30); GLOMERULAR FILTRATION RATE > 60.0 (>60); GLUCOSE, FASTING 85 MG/DL (70-105); POTASSIUM SERUM 3.9 MEQ/L (3.5-5.1); SODIUM LEVEL 144 MEQ/L (136-145); TOTAL PROTEIN 6.6 GM/DL (6.4-8.2)
--- NOTE | 2016-06-07 12:53 | EDDOCDS ---
Nurse's Notes [facility] Name: Renny Lazo Age: 30 yrs Sex: Male : 1985 Arrival Date: 06/07/2016 Time: 07:50 Bed D1 Private MD: Diagnosis: Suicidal ideations Presentation: 06/07 07:58 Presenting complaint: Patient states: states that he was hospitalized in [place] [address] for cocaine abuse, seen at [facility], D/C from there states had SI with plan to OD on trazadone and paxil lastnight. Mental Health Triage Level: Level 2: The patient displays active suicidal ideations. Adult Sepsis Screening: The patient does not have new or worsening altered mentation. Patient's respiratory rate is less than 22. Systolic blood pressure is greater than 100. Patient has a qSOFA score of 0- Negative Sepsis Screen. Mental Health Triage Level: Level 2: The patient displays active suicidal ideations. Suicide/Homicide risk assessment- The patient admits to and/or has been reported to be having suicidal ideations. The patient reports that he/she has been admitted to an inpatient mental health facility in the last 30 days. The patient reports that he/she has a recent or current history of substance abuse. The patient reports that he/she has a prior history of suicide attempt and/or organized plan. The patient reports that he/she has experienced a significant life altering event in the last 30 days. The patient reports that he/she lacks adequate social support. The patient reports he/she has no significant chronic medical condition(s). Status: Patient is not a patient financial services manager or dependent. Transition of care: patient was not received from another setting of care. 07:58 Acuity: ROB Level 3 ml6 07:58 Method Of Arrival: Walkin/Carried/Asstd ml6 07:58 Red Flag criteria, patient assessed and taken directly to a bed. 6 Triage Assessment: 08:05 General: Appears in no apparent distress, Behavior is flat. Pain: Denies pain. Pt ml6 Declines HIV testing. The patient is triaged at the bedside. See Assessment in Nurses Notes section of ED record. Neurological: No deficits noted. Level of Consciousness is awake, alert, Oriented to person, place, time, Recycling Coordinator are equal bilaterally Moves all extremities. Cardiovascular: No deficits noted. Capillary refill < 3 seconds is brisk in bilateral fingers toes Heart tones S1 S2 present Edema is absent. Pulses are all present. Respiratory: No deficits noted. Airway is patent Respiratory effort is even, unlabored, Respiratory pattern is regular, symmetrical, Breath sounds are clear bilaterally. GI: No deficits noted. Abdomen is flat, non- distended Bowel sounds present X 4 quads. Abd is soft and non tender X 4 quads. Historical: - Allergies: no known allergies; - Home Meds: 1. Paxil Unknown Oral Unknown once daily not taking 2. trazodone Unknown Oral Unknown nightly (Last dose: 06/06/2016 21:00) - PMHx: Substance Abuse; Anxiety; Depression; back pain; - PSHx: none; - Social history: Smoking status: Patient states was never smoker of tobacco. Patient uses alcohol occasionally. street drugs, cocaine, No barriers to communication noted, Speaks appropriately for age. - Family history: Not pertinent. - : The pt / caregiver states he / she is not on anticoagulants. Home medication list is obtained from the patient. - Exposure Risk Screening:: None identified. Screenin:58 Screening information is obtained from the patient. Fall risk: No risks identified. ml6 Assistance ADL's: requires no assistance with activities of daily living. Abuse/DV Screen: The patient / caregiver reports he/she is: not in a situation that causes fear, pain or injury. Nutritional screening: No deficits noted. Advance Directives: Currently, there is no health care proxy. home support is adequate. Assessment: 07:58 General: see triage assessment. ml6 08:58 Reassessment: Patient appears in no apparent distress at this time. General: Behavior kr3 is cooperative. Pain: Denies pain. Neurological: Level of Consciousness is awake, alert. Respiratory: Respiratory effort is even, unlabored. Derm: Skin is normal. 09:00 General: Appears in no apparent distress, comfortable, Behavior is appropriate for age, ml6 cooperative. Pain: Denies pain. Neurological: No deficits noted. Level of Consciousness is awake, alert, Oriented to person, place, time. Cardiovascular: No deficits noted. Capillary refill < 3 seconds is brisk in bilateral fingers toes Heart tones S1 S2 present. Respiratory: No deficits noted. Airway is patent Respiratory effort is even, unlabored, Respiratory pattern is regular, symmetrical, Breath sounds are clear bilaterally. GI: No deficits noted. 10:32 Reassessment: Patient appears in no apparent distress at this time. General: Behavior kr3 is cooperative. 12:24 General: Appears in no apparent distress, comfortable, Behavior is cooperative. Pain: mcp Denies pain. Neurological: No deficits noted. Respiratory: Airway is patent Respiratory effort is even, unlabored. Derm: Skin is pink, warm & dry. Mental Health Eval: 09:57 Mental health consult is initiated at 09:15. Status: The patient is not a rb patient financial services manager or dependent. [facility] Behavioral Health: The patient is not an established patient of [facility] Behavioral Health. Referral Information: Evaluation referral is generated by the patient himself / herself. The patient was referred for evaluation because Pt presented to ED after stopping his meds yesterday (do to ?? side effects, "stopped working"), had increased anxiety and depression. Pt reported threw away his meds early this morning because had thoughts of +SI by overdose on meds. Pt stated increased anxiety and anger; smashed his own phone on the sidewalk this morning on way to [facility] ED. Pt reported left [facility] yesterday after 7 days there do to increased anxiety. Pt stated "emotions flood by end of day". . Subjective: The patients chief complaint is increased depression and anxiety, +SI by overdose, substance abuse.. Delusions are denied. Patient's mood is anxious, dysphoric, hopeless, Hallucinations are denied. Mental Health history: depression, abusing marijuana. crack cocaine. panic attacks, sleep disturbance, suicide attempt by hanging at age 15 while in [place]. Pt stated made a noose out of a sheet to hang himself, was stopped by the Guard. Mental Health Admissions: None. Current Outpatient Mental Health Services: Therapist / Agency: [facility]. Pt stated stopped going last fall.. PCP Dr. Linton in [place] for medication management. . Current living environment is The patient currently lives with his / her father, ,. Patient presents to Emergency Department with the following symptoms within the past 2 weeks: anger, antisocial behavior, anxiety, depressed mood, drug abuse, feelings of helplessness/hopelessness, non-compliance, panic attacks, poor impulse control, sleep disturbance - insomnia, suicidal ideation with plan for pills. Substance abuse: Patient uses cocaine, Last use was 15 hours ago. Patient uses marijuana daily. Mental status exam: Patients appearance is disheveled Patient's behavior is cooperative, minimally responsive Speech is mumbled. slow. Affect is flat. Mood is anxious. dysphoric. Hallucinations are denied. Appetite is normal. Memory is good. Energy level is lethargic. Content of thought is depressive. , Thought process is characterized by flight of ideas. Cognitive level is oriented to person, place, time and situation Patient's insight is poor. Judgement is fair. Rapport with interviewer is good. Suicidal Ideation present with a plan to kill self by pills. Homicidal ideation is not present. Disposition: Medically cleared for disposition by Jo-Ann Jiang MD Psychiatric Consult is performed by phone with Dr Sherwin Katz MD. [facility] Admission Criteria: The patient is experiencing suicidal ideation. The patient displays symptoms of severe psychiatric disorder resulting in disordered behavior and significant interference with his / her ability to maintain self care. Severe Anxiety. The patient requires continuous observation and/or control to protect self, others or property. The patient's care requires a multi-modal treatment plan under close supervision and coordination due to the complexity and severity of the patient's symptoms. Legal Status: Patient's legal status will be Emergency admission: 9.39. [place] Safe Act: [place] Safe Act is applicable to this patient. The patient poses a risk to self or other and the Nursing Acid Tender has been notified. He/She will enter the patient's data. 11:08 Pt states preferred pharmacy is: [facility] in [facility] and [facility] in [place] . rb 11:44 DSM-V Differential Diagnosis: Major Depressive Disorder unspecified (F33.9). Awaiting: rb transfer to [facility]. Vital Signs: 08:06 Resp 16; Weight 81.65 kg (R); Height 6 ft. 3 in. (190.50 cm) (R); Pain 0/10; ml6 08:16 BP 128 / 77; Pulse 58; Resp 16; Temp 97.7(O); Pulse Ox 94% on R/A; dpm 11:48 BP 121 / 77; Pulse 67; Resp 16; Temp 97.5(O); Pulse Ox 95% on R/A; dpm 08:06 Body Mass Index 22.50 (81.65 kg, 190.50 cm) ml6 Vitals: 07:54 Log In Time: June 07, 2016 at 07:51. ml6 ED Course: 07:51 Patient visited by Kali Kimball, Magdi. lg 07:51 Patient moved to Waiting lg 07:52 Patient moved to RUST ml6 07:59 JoA-nn Jiang MD is Attending Physician. sd1 07:59 Patient visited by Jo-Ann Jiang MD. sd1 08:03 Triage Initiated ml6 08:19 Patient visited by Francisco Lacey. dpm 08:19 Pt greeted and oriented to ED. Patient advised of names of staff involved in care, dpm location of call more[place], wait times and NPO status. Patient has correct armband on for positive identification. Placed in gown. Placed in psych safe attire. Security observing. Property removed, inventory done, secured in belongings bag- placed in locked locker. Placed in locker 3. Psych Safety Check: Location: Psych Room. Visual Assessment: Cooperative. 08:22 Acetaminophen Level Sent. dpm 08:22 Basic Metabolic Profile Sent. dpm 08:22 Complete Blood Count Sent. dpm 08:22 Drug Eval Toxicology ED Only Sent. dpm 08:22 Ethyl Alcohol (ethanol) Sent. dpm 08:22 Liver Profile Sent. dpm 08:22 Salicylate Level Sent. dpm 08:22 Thyroid Stimulating Hormone Sent. dpm 08:30 Patient visited by Francisco Lacey. dpm 08:43 Patient visited by Francisco Lacey. dpm 08:57 Patient visited by Francisco Lacey. dpm 08:59 The patient / caregiver is instructed regarding the plan of care and ED course. kr3 08:59 Diet tray given. kr3 08:59 No IV's were initiated during this patient's visit. No procedures done that require kr3 assistance. 09:12 Patient visited by Francisco Lacey. dpm 09:31 Patient visited by Francisco Lacey. dpm 09:51 Patient visited by Francisco Lacey. dpm 10:06 Patient visited by Francisco Lacey. dpm 10:18 Patient visited by Francisco Lacey. dpm 10:33 Patient visited by Francisco Lacey. dpm 10:45 Patient visited by Francisco Lacey. dpm 10:54 Patient name changed from Renny\\Venus\\Marvel\\S\\Clifton\\S\\ to Renny\\Venus\\Malcolm\\S\\Clifton. EDMS 10:55 [facility] Payment Agreement was scanned into [employer] and attached to record. lg 11:01 Patient visited by Francisco Lacey. dpm 11:19 Patient visited by Francisco Lacey. dpm 11:20 Sherwin Katz MD is Hospitalizing Provider. sd1 11:30 Patient visited by Francisco Lacey. dpm 11:34 EKG done. Reviewed by Jo-Ann Jiang MD. jrd 11:47 Patient visited by Francisco Lacey. dpm 11:47 [facility] Legal paperwork was scanned into [employer] and attached to record. rb 12:07 Patient visited by Francisco Lacey. dpm 12:15 Patient visited by Francisco Lacey. dpm 12:49 Patient moved to D1 dpm Attachments: 11:47 [facility] Legal paperwork rb Order Results: Lab Order: Acetaminophen Level; SPEC'M 06/07/16 08:12 Test: ACETAMINOPHEN LEVEL; Value: < 2.0; Range: 10.0-30.0; Abnormal: Below low normal; Units: UG/ML; Status: F Lab Order: Basic Metabolic Profile; SPEC'M 06/07/16 08:12 Test: GLUCOSE, FASTING; Value: 85; Range: 70-105; Units: MG/DL; Status: F Test: BLOOD UREA NITROGEN; Value: 14; Range: 7-18; Units: MG/DL; Status: F Test: CREATININE FOR GFR; Value: 0.98; Range: 0.70-1.30; Units: MG/DL; Status: F Test: GLOMERULAR FILTRATION RATE; Value: > 60.0; Range: >60; Status: F Test: SODIUM LEVEL; Value: 144; Range: 136-145; Units: MEQ/L; Status: F Test: POTASSIUM SERUM; Value: 3.9; Range: 3.5-5.1; Units: MEQ/L; Status: F Test: CHLORIDE LEVEL; Value: 108; Range: 98-107; Abnormal: Above high normal; Units: MEQ/L; Status: F Test: CARBON DIOXIDE LEVEL; Value: 27; Range: 21-32; Units: MEQ/L; Status: F Test: ANION GAP; Value: 9; Range: 8-16; Units: MEQ/L; Status: F Test: CALCIUM LEVEL; Value: 9.0; Range: 8.5-10.1; Units: MG/DL; Status: F Test Note: ; Units are mL/min/1.73 m2 Chronic Kidney Disease Staging per NKF: Stage I & II GFR >=60 Normal to Mildly Decreased Stage III GFR 30-59 Moderately Decreased Stage IV GFR 15-29 Severely Decreased Stage V GFR <15 Very Little GFR Left ESRD GFR <15 on MESSAGING ARCHITECT Lab Order: Complete Blood Count; SPEC'M 06/07/16 08:12 Test: WHITE BLOOD COUNT; Value: 5.5; Range: 4.0-10.0; Units: K/mm3; Status: F Test: RED BLOOD COUNT; Value: 5.37; Range: 4.30-6.10; Units: M/mm3; Status: F Test: HEMOGLOBIN; Value: 16.0; Range: 14.0-18.0; Units: g/dl; Status: F Test: HEMATOCRIT; Value: 46.8; Range: 42.0-52.0; Units: %; Status: F Test: MEAN CORPUSCULAR VOLUME; Value: 87.0; Range: 80.0-96.0; Units: fl; Status: F Test: MEAN CORPUSCULAR HEMOGLOBIN; Value: 29.8; Range: 27.0-33.0; Units: pg; Status: F Test: MEAN CORPUSCULAR HGB CONC; Value: 34.2; Range: 32.0-36.5; Units: g/dl; Status: F Test: RED CELL DISTRIBUTION WIDTH; Value: 13.6; Range: 11.5-14.5; Units: %; Status: F Test: PLATELET COUNT, AUTOMATED; Value: 198; Range: 150-450; Units: k/mm3; Status: F Lab Order: Drug Eval Toxicology ED Only; SPEC'M 06/07/16 08:12 Test: AMPHETAMINES LEVEL URINE; Value: NEGATIVE; Range: NEGATIVE; Status: F Test: BARBITURATES URINE; Value: NEGATIVE; Range: NEGATIVE; Status: F Test: BENZODIAZEPINES URINE; Value: NEGATIVE; Range: NEGATIVE; Status: F Test: CANNABINOIDS URINE; Value: POSITIVE; Range: NEGATIVE; Abnormal: Above high normal; Status: F Test: COCAINE METABOLITE URINE; Value: POSITIVE; Range: NEGATIVE; Abnormal: Above high normal; Status: F Test: METHADONE URINE; Value: NEGATIVE; Range: NEGATIVE; Status: F Test: OPIATES URINE; Value: NEGATIVE; Range: NEGATIVE; Status: F Test: TRICYCLIC ANTIDEPRESS URINE; Value: NEGATIVE; Range: NEGATIVE; Status: F Test Note: ; FALSE POSITIVE RESULTS CAN BE CAUSED BY THE USE OF PANTOPRAZOLE (PROTONIX). Lab Order: Ethyl Alcohol (ethanol); SPEC' 06/07/16 08:12 Test: ETHYL ALCOHOL (ETHANOL); Value: < 0.003; Range: 0.000-0.010; Units: %; Status: F Lab Order: Liver Profile; SPEC 06/07/16 08:12 Test: AST/SGOT; Value: 26; Range: 15-37; Units: U/L; Status: F Test: ALT/SGPT; Value: 22; Range: 12-78; Units: U/L; Status: F Test: ALKALINE PHOSPHATASE; Value: 54; Range: 45-117; Units: U/L; Status: F Test: BILIRUBIN,TOTAL; Value: 0.7; Range: 0.2-1.0; Units: MG/DL; Status: F Test: BILIRUBIN,DIRECT; Value: 0.2; Range: 0.0-0.2; Units: MG/DL; Status: F Test: TOTAL PROTEIN; Value: 6.6; Range: 6.4-8.2; Units: GM/DL; Status: F Test: ALBUMIN; Value: 4.0; Range: 3.2-5.2; Units: GM/DL; Status: F Test: ALBUMIN/GLOBULIN RATIO; Value: 1.54; Range: 1.00-1.93; Status: F Lab Order: Salicylate Level; SPEC 06/07/16 08:12 Test: SALICYLATE LEVEL; Value: < 1.7; Range: 5.0-30.0; Abnormal: Below low normal; Units: MG/DL; Status: F Lab Order: Thyroid Stimulating Hormone; SPEC 06/07/16 08:12 Test: THYROID STIMULATING HORMONE; Value: 1.490; Range: 0.358-3.740; Units: uIU/ML; Status: F Lab Order: Creatine Phosphokinase; SPEC'M 06/07/16 08:12 Test: CPK CREATINE PHOSPHOKINASE; Value: 170; Range: 39-308; Units: U/L; Status: F Outcome: 08:59 No special radiology studies were completed. kr3 11:20 Decision to Hospitalize by Provider. sd1 12:25 Discharge Assessment: patient administered narcotics - no. The following High Risk [facility] Discharge criteria are identified: None. Admitted to Psych accompanied by tech, via wheelchair, with chart. Condition: stable. 12:52 Patient left the ED. [facility] Signatures: Dispatcher [employer] EDMS Jo-Ann Jiang MD MD sd1 Laure Cruz RN RN mcp Michaelle Ramos, PSA PSA rb Kali Kimball, Reg Reg lg Prabha Garcia,REDDY RN john3 Dontrell Patton RN RN ml6 Francisco Lacey dpm, Joseph, PCA PACKAGE REINSPECTOR jrd AMANDAD
--- NOTE | 2016-06-07 12:53 | EDDOCDS ---
Physician Documentation [facility] Name: Renny Lazo Age: 30 yrs Sex: Male : 1985 Arrival Date: 06/07/2016 Time: 07:50 Bed D1 Private MD: Disposition: 06/07/16 11:20 Hospitalization ordered by Sherwin Katz for Inpatient Admission. Preliminary diagnosis is Suicidal ideations. - Bed requested for Admit. - Status is Inpatient Admission. mcp - Condition is Stable. - Problem is new. - Symptoms are unchanged. Historical: - Allergies: no known allergies; - Home Meds: 1. Paxil Unknown Oral Unknown once daily not taking 2. trazodone Unknown Oral Unknown nightly (Last dose: 06/06/2016 21:00) - PMHx: Substance Abuse; Anxiety; Depression; back pain; - PSHx: none; - Social history: Smoking status: Patient states was never smoker of tobacco. Patient uses alcohol occasionally. street drugs, cocaine, No barriers to communication noted, Speaks appropriately for age. - Family history: Not pertinent. - : The pt / caregiver states he / she is not on anticoagulants. Home medication list is obtained from the patient. - Exposure Risk Screening:: None identified. Vital Signs: 06/07 08:06 Resp 16; Weight 81.65 kg / 180.01 lbs (R); Height 6 ft. 3 in. (190.50 cm) (R); Pain ml6 0/10; 08:16 BP 128 / 77; Pulse 58; Resp 16; Temp 97.7(O); Pulse Ox 94% on R/A; dpm 11:48 BP 121 / 77; Pulse 67; Resp 16; Temp 97.5(O); Pulse Ox 95% on R/A; dpm 08:06 Body Mass Index 22.50 (81.65 kg, 190.50 cm) ml6 MDM: 07:59 Consult PFS/PSA/Ticket Writer ordered. sd1 07:59 Consult PFS/PSA/Ticket Writer: Patient's case requires discussion with on-call sd1 Psychiatrist ordered. 07:59 PSA/PFS to call Nursing Hotel Operation Manager, to enter patient data on [place] Safe Act if patient sd1 involuntarily admitted or transferred for SI or HI ordered. 07:59 Confirm accurate psychiatric medication list and times of last dosage ordered. sd1 07:59 Detain Pt Until Medically/PFS Cleared ordered. sd1 08:00 Acetaminophen Level Ordered. EDMS 08:00 Basic Metabolic Profile Ordered. EDMS 08:00 Complete Blood Count Ordered. EDMS 08:00 Drug Eval Toxicology ED Only Ordered. EDMS 08:00 Ethyl Alcohol (ethanol) Ordered. EDMS 08:00 Liver Profile Ordered. EDMS 08:00 Salicylate Level Ordered. EDMS 08:00 Thyroid Stimulating Hormone Ordered. EDMS 08:01 Creatine Phosphokinase Ordered. EDMS 08:01 ECG WITH READING ER PHYS+CARDIAG ordered. EDMS 08:09 BED REQUEST+ADM ordered. EDMS 08:14 REGULAR DIET PLASTIC GAINES+DIET ordered. EDMS 09:00 Acetaminophen Level Reviewed. sd1 09:00 Basic Metabolic Profile Reviewed. sd1 09:00 Drug Eval Toxicology ED Only Reviewed. sd1 09:00 Salicylate Level Reviewed. sd1 09:00 Complete Blood Count Reviewed. sd1 09:00 Ethyl Alcohol (ethanol) Reviewed. sd1 09:00 Liver Profile Reviewed. sd1 09:00 Thyroid Stimulating Hormone Reviewed. sd1 09:00 Creatine Phosphokinase Reviewed. sd1 09:37 Consult PFS/PSA/Ticket Writer complete. rb 10:00 Financial registration complete. lg 10:55 [facility] Payment Agreement was scanned into [employer] and attached to record. lg 11:20 REGULAR DIET PLASTIC GAINES+DIET ordered. EDMS 11:22 Admit to [facility]: ordered. EDMS 11:47 [facility] Legal paperwork was scanned into [employer] and attached to record. rb 11:57 Consult PFS/PSA/Ticket Writer: Patient's case requires discussion with on-call rb Psychiatrist complete. 11:57 PSA/PFS to call Nursing Hotel Operation Manager, to enter patient data on [place] Safe [place] if patient rb involuntarily admitted or transferred for SI or HI complete. Signatures: Dispatcher [employer] EDMS Jo-Ann Jiang MD MD sd1 Laure Cruz RN RN Michaelle Harris PSA PSA rb Kali Kimball, Magdi Reg lg Prabha Garcia RN RN kr3 Dontrell Patton RN RN ml6 The chart was reviewed and I authenticate all verbal orders and agree with the evaluation and treatment provided.Attachments: 10:55 [facility] Payment Agreement lg MTDD
[2016-06-07 13:16] VITALS: BP 128/74
[2016-06-07] MEDS ORDERED: TRAZ150T14 PO (13:36)
[2016-06-07] MEDS ORDERED: IBUP200C PO (13:36)
[2016-06-07] MEDS ORDERED: MAALOX 30 ML SUSP *UDC PO PRN (17:45)
[2016-06-07] MEDS ORDERED: MOM 30ML SUSPENSION UDC PO PRN (17:45)
[2016-06-07 18:00] VITALS: BP 122/65
[2016-06-07] MEDS: traZODone 50 MG TAB PO PRN (21:52)
[2016-06-07] MEDS: hydrOXYzine 50 MG TAB PO PRN (21:52)
[2016-06-08 06:45] VITALS: BP 112/63
--- NOTE | 2016-06-08 07:19 | ECGEPIP ---
Stationary ECG Study [facility] - ED Test Date: 2016-06-07 Pat Name: AMBROCIO JAUREGUI Department: Room: - Gender: M Armament Mechanic: jessica : 1985 Requested By: Jo-Ann Jiang Order Number: [id number] Reading MD: Jo-Ann Jiang Measurements Intervals [place] Rate: 51 P: 61 MT: 157 QRS: 84 QRSD: 99 T: 71 QT: 409 QTc: 378 Interpretive Statements SINUS BRADYCARDIA WITH SINUS ARRHYTHMIA PROBABLE EARLY REPOLARIZATION, CLINICAL CORRELATION NO PRIOR FOR COMPARISON Electronically Signed On 06-08-2016 7:19:06 EST by Jo-Ann Jiang
[2016-06-08] MEDS: hydrOXYzine 50 MG TAB PO PRN ×2 (08:54→22:55)
--- NOTE | 2016-06-08 10:42 | HPEPDOC ---
Medical History and Physical Date of Admission Jun 07, 2016 at 12:35 History and Physical PCP: Stacie HASKINS ATTENDING: Dr. Param Dawkins HPI: 30yoM admitted to [facility] for undifferentiated depressive disorder, being medically examined today. Patient states he has chronic low back pain which radiates down the posterior aspect of his right lower extremity. Sometimes his leg gives out. He denies any numbness or tingling. No bowel or bladder incontinence . He also reports recently he was loading lumber from a local [employer] and he injured his left wrist. He states he is still having pain. It feels weak. There has been no erythema, no edema. He also states he was recently working in a garage when a pneumatic air hose hit him on the back of the head. He was standing on a ladder at the time. He states he fell from the ladder but did not hit the ground. He denies loss of consciousness. He states he experienced a large knot on the back of his head. He reports a funny taste in his mouth at the time however no bleeding. No lightheadedness. No headache. No memory loss. No dizziness. It's finishing work at the time of the incident. He did not seek medical care. Denies any fevers, chills, weakness, fatigue, MAGDALENO, CP, SOB, cough, palpitations, abdominal pain, N/V/D or changes in bowel or bladder habits. PMHx: Anxiety depression Chronic back pain Substance use PSHX: Denies SOCHX: Resides in: [facility] Marital Status: Single Kids: None Employment: Unemployed, sometimes works as a diesel technician Tobacco use: Denies ETOH: 12 drinks every 2 months Illicit Drugs: Cocaine once per week, marijuana daily IV Drug Use: Denies Tattoos done unprofessionally: Denies FAMHX: Mother: Alive, well Father: Alive, well Siblings: Alive, well Children: None Unexpected deaths due to medical reasons: None. ROS: As noted in HPI, otherwise 11pt ROS of systems reviewed and unremarkable. PE: GEN: 30 yo male, appears stated age. Well-nourished, well developed. No acute distress. Alert and oriented x 3. Pleasant, interactive. HEENT: Normocephalic, atraumatic. Pupils are equal, round, and reactive to light. Extraocular movements are intact. No nystagmus appreciated. Sclera are nonicteric. Conjunctiva without injection. Nose midline. Nasal turbinates without bogginess. EACs both patent BL. TMs both visualized and nichols with good cone of light, no bulging or erythema. No facial asymmetry. Moist mucous membranes. Dentition fair. Pharynx pink and moist, no cobblestoning. Neck supple , trachea midline. No lymphadenopathy or thyromegaly appreciated. CHEST: Regular rate and rhythm, +S1, +S2 LUNGS: Clear to auscultation bilaterally. No wheezes, rales, or rhonchi. Breathing appears symmetric and easy. Patient is speaking in full sentences. No accessory muscle use. ABD: Round, soft, non-tender, non-distended. +Bowel sounds throughout. No rebound or guarding. No costovertebral angle tenderness. EXT: Pulses 2+ bilaterally dorsalis pedis and radial. No lower extremity edema appreciated. SKIN: [place], dry, warm. Capillary refill <2sec. No rashes. NEURO: Alert and oriented x 3. Cranial nerves III-XII are intact. No focal deficits appreciated. EK06/07/16. SINUS BRADYCARDIA WITH SINUS ARRHYTHMIA PROBABLE EARLY REPOLARIZATION, CLINICAL CORRELATION NO PRIOR FOR COMPARISON A&P: 30yoM admitted to [facility] for undifferentiated depressive disorder 1. Psych. Plan per Psychiatry. EKG on file. 2. Recent head injury. There is no palpable head or scalp injury at this time. Check CT scan of the head. 3. Borderline EKG. No cardiac signs or symptoms appreciated on exam, follow with PCP. 4. Follow up with PCP on discharge. 5. Substance use. Per psychiatry. 6. Chronic low back pain. Tylenol 650 mg every 4 hours as needed. Check x-ray of lumbosacral spine. 7. Left wrist pain/status post injury. Possible left wrist strain/sprain. Tylenol 650 mg every 4 hours as needed. Check x-ray of the left wrist. 8. Staff member was present throughout exam. Kimani guy aide. Vital Signs Vital Signs Label Value Date Time Patient Temperature 97.4 degrees F 06/08/16 0645 Temperature Source Tympanic 06/08/16 0645 Pulse 59 06/08/16 0645 Respiratory Rate 16 bpm 06/08/16 0645 Blood Pressure Assessment 112/63 (79) 06/08/16 0645 Laboratory Data Labs 24H Item Value Date Time White Blood Count 5.5 K/mm3 06/07/16 0812 Red Blood Count 5.37 M/mm3 06/07/16 0812 Hemoglobin 16.0 g/dl 06/07/16 0812 Hematocrit 46.8 % 06/07/16 0812 Mean Corpuscular Volume 87.0 fl 06/07/16 0812 Mean Corpuscular Hemoglobin 29.8 pg 06/07/16 0812 Mean Corpuscular Hemoglobin Concent 34.2 g/dl 06/07/16 0812 Red Cell Distribution Width 13.6 % 06/07/16 0812 Platelet Count 198 k/mm3 06/07/16 0812 Sodium Level 144 MEQ/L 06/07/16 0812 Potassium Level 3.9 MEQ/L 06/07/16 0812 Chloride Level 108 MEQ/L H 06/07/16 0812 Carbon Dioxide Level 27 MEQ/L 06/07/16 0812 Anion Gap 9 MEQ/L 06/07/16 0812 Blood Urea Nitrogen 14 MG/DL 06/07/16 0812 Creatinine 0.98 MG/DL 06/07/16 0812 Glomerular Filtration Rate > 60.0 06/07/16 0812 Fasting Glucose 85 MG/DL 06/07/16 0812 Calcium Level 9.0 MG/DL 06/07/16 0812 Total Bilirubin 0.7 MG/DL 06/07/16 0812 Direct Bilirubin 0.2 MG/DL 06/07/16 0812 Aspartate Amino Transf (AST/SGOT) 26 U/L 06/07/16 0812 Alanine Aminotransferase (ALT/SGPT) 22 U/L 06/07/16 0812 Alkaline Phosphatase 54 U/L 06/07/16 0812 Total Creatine Kinase 170 U/L 06/07/16 0812 Total Protein 6.6 GM/DL 06/07/16 0812 Albumin 4.0 GM/DL 06/07/16 0812 Albumin/Globulin Ratio 1.54 06/07/16 0812 Thyroid Stimulating Hormone (TSH) 1.490 uIU/ML 06/07/16 0812 Salicylates Level < 1.7 MG/DL L 06/07/16 0812 Urine Opiates Screen NEGATIVE 06/07/16 0812 Urine Methadone Screen NEGATIVE 06/07/16 0812 Acetaminophen Level < 2.0 UG/ML L 06/07/16 08 Urine Barbiturates, Qualitative NEGATIVE 06/07/16 08 Urine Tricyclic Antidepressants NEGATIVE 06/07/16 08 Urine Amphetamine Level NEGATIVE 06/07/16811 Urine Benzodiazepines Screen NEGATIVE 06/07/16 08 Urine Cocaine Metabolite POSITIVE H 06/07/16 08 Urine Cannabinoids POSITIVE H 06/07/16 08 Ethyl Alcohol Level < 0.003 % 06/07/16 08 Home Medications Scheduled Paroxetine Hydrochloride (Paxil) 20 Mg Tab 20 MG PO DAILY anxiety/depression PT STATES HE IS NOT TAKING- FILLED 05/24/16 Scheduled PRN Ibuprofen (Ibuprofen) 200 Mg Cap Unknown Dose PO DAILYPRN PRN PRN BACK PAIN Trazodone HCl (Trazodone HCl) 150 Mg Tab 150 MG PO QHSP PRN PRN INSOMNIA Allergies Coded Allergies: Bee Venom (Unverified Allergy, Mild, 06/07/16) No Known Drug Allergy (Unverified Allergy, Unknown, 06/07/16) Reva Melchor Jun 08, 2016 10:42
--- NOTE | 2016-06-08 11:53 | HPEPDOC ---
[facility] History & Physical History and Physical DATE OF ADMISSION: Jun 07, 2016 at 12:35 CHIEF COMPLAINT: "I think it was a reaction to my meds". Pt. states he had suicidal thoughts of overdosing on his meds. HISTORY OF THE PRESENT ILLNESS: Pt. states situational stressors "Which I don't want to get in to" also aggravated the potential med reaction. Pt. does not want to talk about the fact he was in residential rehab for cocaine use disorder. On admission to the ER pt's UDS was POS for cannabis and cocaine. Pt. also feels his lack of sleep made his depression and anxiety symptoms worse as well. PAST PSYCHIATRIC HISTORY: Pt. reports this is his seconf inpatient admission for psychiatric reasons. Pt. states 1 st admit was at age 15 yo when he attempted suicide while in half-way by hanging himself with a bedsheet. Pt. states he has had some therapy in the past but has not stuck with a therapist for a consistent amount of time. Pt. states "I couldn't relate to them". FAMILY PSYCHIATRIC HISTORY: Pt. states MOM, sister, Maternal Grandma all have depression. PAST MEDICAL HISTORY: Low back pain, pt. denies any other health issue. SOCIAL HISTORY: Pt. is single, no kids, lives with father. Pt. is unemployed currently, is not going to school or volunteering. ETOH/SUBSTANCE ABUSE HISTORY: Pt. states his drugs of choice are "Kilmichael" since age 12. I smoke it daily and do not plan on stopping any time soon. Pt. also likes to use Cocaine and has since age 16. HOME MEDICATIONS: Please see below. Unknown as pt. does not know exact names or dosages. Pt. states he stopped using prescribed meds before going in to rehab. Pt. states he was upset when rehab did not give him a stronger med(BENZO) to help with his anxiety, "So I just left". ALLERGIES: Please see below. LEGAL HISTORY: Pt. states "I don't want to say". VITAL SIGNS: Temperature 97.4, pulse 59, respiratory rate 16, blood pressure 112 /63. LABORATORY DATA: Please see below. UDS on admission POS for Cannabis, Cocaine MENTAL STATUS EXAMINATION: Patient is a 30 year-old male who appears older than stated age. Pt. is dressed in hospital scrubs and t shirt. Pt. is noted to have a steady gait. Speech: Is pressured, circumstantial, of increased rate and normal volume. Pt. is articulate, coherent and spontaneous. Language skills are intact. Thought processes: Not clear, goal directed to go home only. Pt. bears no responsibility for his substance use, nor does he see a problem with it. Thought content: Irrational, illogical, tangential. Abstract reasoning, and computation: Adequate. Description of associations: Tangential, circumstantial. Description of abnormal or psychotic thoughts: Pt. denies hallucinations, delusions, paranoia, obsessions, compulsions, homicidal or suicidal ideation. Pt. states he has been having false memories of dog bites. Does not understand why. Judgment: Poor. Insight: Minimal, if any. Orientation to person, place, time and surroundings. Recent and remote memory: "Clearing" per pt. Attention span and concentration: Poor. Language: Normal. Hyperverbose. Fund of knowledge: Adequate. Mood: "I am upset that I put myself in here, I should have just gone to my primary doctor". Affect: Appropriate, flat, irrational at times in attempts to fabricate/ confabulate, anxious, under the influence??, manic. DIAGNOSES: 1. Major depressive disorder, recurrent 2. Polysubstance use disorder ASSESSMENT: Pt. is a tall, slender male in an apparent manic state, probably substance induced. Pt. disregards and refuses to consider any medication recommendations to help with his depression or anxiety. Pt. tells provider that he is "Just going to use my pot, not going to stop no matter what anyone says". Pt. does not want to answer with more than a "Yes or No". When provider asks specifics, pt. states "I don't want to get into that". PROBLEM LIST: 1. Risk for suicide 2. Substance Abuse 3. Ineffective coping INITIAL TREATMENT PLAN: Pt. to continue Trazodone 150 mg po qhs prn for sleep, hydroxyzine hcl 50 mg po q 6 h prn for anxiety/agitation. Maintain safety precautions, Patient to attend groups and participate in unit programming to develop effective coping strategies, Patient to be engage in the discharge planning process to ensure safe and effective discharge plan. Pt. to follow up with PCP upon discharge. Pt. to re-start therapy, medication management services upon discharge, pt. to consider substance abuse support group upon discharge. ESTIMATED LENGTH OF STAY: 4-6 days. TIME SPENT COUNSELING AND COORDINATING INITIAL CARE: 50 minutes. Medications Scheduled Paroxetine Hydrochloride (Paxil) 20 Mg Tab 20 MG PO DAILY anxiety/depression ( Reported) PT STATES HE IS NOT TAKING- FILLED 05/24/16 Scheduled PRN Ibuprofen (Ibuprofen) 200 Mg Cap Unknown Dose PO DAILYPRN PRN PRN BACK PAIN ( Reported) Trazodone HCl (Trazodone HCl) 150 Mg Tab 150 MG PO QHSP PRN PRN INSOMNIA ( Reported) Allergies Coded Allergies: Bee Venom (Unverified Allergy, Mild, 06/07/16) No Known Drug Allergy (Unverified Allergy, Unknown, 06/07/16) JEAN RAZA NP Jun 08, 2016 11:53
--- NOTE | 2016-06-08 11:58 | REP ---
CT Head without contrast HISTORY: Head injury COMPARISON: None There is no intraparenchymal hemorrhage, acute infarct, mass or midline shift. The ventricular system is normal in appearance. There is no extra cerebral collection. There is no fracture. The visualized sinuses are clear. IMPRESSION: There is no intracranial lesion. Signed by Greg Vazquez MD 06/08/2016 11:49 A
--- NOTE | 2016-06-08 12:13 | REP ---
LUMBAR SPINE SERIES: Five views. HISTORY: Back pain. FINDINGS: Five views of the lumbar spine show preserved vertebral body heights. There is slight straightening. There is disc space narrowing at L4-5 consistent with early degenerative disc disease at this level. Other disc spaces are maintained. Pedicles and posterior elements are intact. There is no evidence of spondylolysis or spondylolisthesis. Psoas margins are symmetric. Sacrum and SI joints are intact. IMPRESSION: Mild disc space narrowing at L4-5. Straightening. Otherwise negative. Signed by Noel Jay MD 06/08/2016 02:01 P
--- NOTE | 2016-06-08 12:15 | REP ---
LEFT WRIST, FOUR VIEWS: HISTORY: Pain. There is no acute fracture or dislocation. The joint spaces are normal in appearance. IMPRESSION: There is no acute fracture or dislocation. Signed by Greg Vazquez MD 06/08/2016 12:17 P
[2016-06-08] MEDS: IBUPROFEN 400 MG TAB PO PRN (15:13)
[2016-06-08 18:12] VITALS: BP 122/80
[2016-06-08] MEDS: traZODone 50 MG TAB PO PRN (21:24)
[2016-06-09 06:24] VITALS: BP 121/65
[2016-06-09] MEDS: hydrOXYzine 50 MG TAB PO PRN (13:37)
--- NOTE | 2016-06-09 13:52 | EDDOCDS ---
Physician Documentation [facility] Name: Renny Lazo Age: 30 yrs Sex: Male : 1985 Arrival Date: 06/07/2016 Time: 07:50 Bed D1 Private MD: Disposition: 06/07/16 11:20 Hospitalization ordered by Sherwin Katz for Inpatient Admission. Preliminary diagnosis is Suicidal ideations. - Bed requested for Admit. - Status is Inpatient Admission. mcp - Condition is Stable. - Problem is new. - Symptoms are unchanged. Historical: - Allergies: no known allergies; - Home Meds: 1. Paxil Unknown Oral Unknown once daily not taking 2. trazodone Unknown Oral Unknown nightly (Last dose: 06/06/2016 21:00) - PMHx: Substance Abuse; Anxiety; Depression; back pain; - PSHx: none; - Social history: Smoking status: Patient states was never smoker of tobacco. Patient uses alcohol occasionally. street drugs, cocaine, No barriers to communication noted, Speaks appropriately for age. - Family history: Not pertinent. - : The pt / caregiver states he / she is not on anticoagulants. Home medication list is obtained from the patient. - Exposure Risk Screening:: None identified. Vital Signs: 06/07 08:06 Resp 16; Weight 81.65 kg / 180.01 lbs (R); Height 6 ft. 3 in. (190.50 cm) (R); Pain ml6 0/10; 08:16 BP 128 / 77; Pulse 58; Resp 16; Temp 97.7(O); Pulse Ox 94% on R/A; dpm 11:48 BP 121 / 77; Pulse 67; Resp 16; Temp 97.5(O); Pulse Ox 95% on R/A; dpm 08:06 Body Mass Index 22.50 (81.65 kg, 190.50 cm) ml6 MDM: 07:59 Consult PFS/PSA/Worldwide Chief Creative Officer ordered. sd1 07:59 Consult PFS/PSA/Worldwide Chief Creative Officer: Patient's case requires discussion with on-call sd1 Psychiatrist ordered. 07:59 PSA/PFS to call Nursing Scale Clerk, to enter patient data on [place] Safe Act if patient sd1 involuntarily admitted or transferred for SI or HI ordered. 07:59 Confirm accurate psychiatric medication list and times of last dosage ordered. sd1 07:59 Detain Pt Until Medically/PFS Cleared ordered. sd1 08:00 Acetaminophen Level Ordered. EDMS 08:00 Basic Metabolic Profile Ordered. EDMS 08:00 Complete Blood Count Ordered. EDMS 08:00 Drug Eval Toxicology ED Only Ordered. EDMS 08:00 Ethyl Alcohol (ethanol) Ordered. EDMS 08:00 Liver Profile Ordered. EDMS 08:00 Salicylate Level Ordered. EDMS 08:00 Thyroid Stimulating Hormone Ordered. EDMS 08:01 Creatine Phosphokinase Ordered. EDMS 08:01 ECG WITH READING ER PHYS+CARDIAG ordered. EDMS 08:09 BED REQUEST+ADM ordered. EDMS 08:14 REGULAR DIET PLASTIC GAINES+DIET ordered. EDMS 09:00 Acetaminophen Level Reviewed. sd1 09:00 Basic Metabolic Profile Reviewed. sd1 09:00 Drug Eval Toxicology ED Only Reviewed. sd1 09:00 Salicylate Level Reviewed. sd1 09:00 Complete Blood Count Reviewed. sd1 09:00 Ethyl Alcohol (ethanol) Reviewed. sd1 09:00 Liver Profile Reviewed. sd1 09:00 Thyroid Stimulating Hormone Reviewed. sd1 09:00 Creatine Phosphokinase Reviewed. sd1 09:37 Consult PFS/PSA/Worldwide Chief Creative Officer complete. rb 10:00 Financial registration complete. lg 10:55 [facility] [place] Agreement was scanned into [employer] and attached to record. lg 11:20 REGULAR DIET PLASTIC GAINES+DIET ordered. EDMS 11:22 Admit to [facility]: ordered. EDMS 11:47 [facility] Legal paperwork was scanned into [employer] and attached to record. rb 11:57 Consult PFS/PSA/Worldwide Chief Creative Officer: Patient's case requires discussion with on-call rb Psychiatrist complete. 11:57 PSA/PFS to call Nursing Scale Clerk, to enter patient data on [place] Safe [place] if patient rb involuntarily admitted or transferred for SI or HI complete. 06/08 09:11 T-Sheet-- Draft Copy was scanned into [employer] and attached to record. gb 09:12 ECG/EKG was scanned into [employer] and attached to record. gb Signatures: Dispatcher [employer] EDMA Jo-Ann Jiang MD MD sd1 Laure Cruz RN RN mcp Michaelle Ramos, PSA PSA rb Stacy Kim, Reg Reg gb Kali Kimball, Reg Reg lg Prabha Garcia RN RN [id number] Dontrell Patton, RN RN ml6 The chart was reviewed and I authenticate all verbal orders and agree with the evaluation and treatment provided.Attachments: 06/07 10:55 [facility] Payment Agreement lg 06/08 09:11 T-Sheet-- Draft Copy gb 09:12 ECG/EKG gb Chart Complete MTDD
--- NOTE | 2016-06-09 13:52 | EDDOCDS ---
Nurse's Notes [facility] Name: Renny Lazo Age: 30 yrs Sex: Male : 1985 Arrival Date: 06/07/2016 Time: 07:50 Bed D1 Private MD: Diagnosis: Suicidal ideations Presentation: 06/07 07:58 Presenting complaint: Patient states: states that he was hospitalized in [place] [address] for cocaine abuse, seen at [facility], D/C from there states had SI with plan to OD on trazadone and paxil lastnight. Mental Health Triage Level: Level 2: The patient displays active suicidal ideations. Adult Sepsis Screening: The patient does not have new or worsening altered mentation. Patient's respiratory rate is less than 22. Systolic blood pressure is greater than 100. Patient has a qSOFA score of 0- Negative Sepsis Screen. Mental Health Triage Level: Level 2: The patient displays active suicidal ideations. Suicide/Homicide risk assessment- The patient admits to and/or has been reported to be having suicidal ideations. The patient reports that he/she has been admitted to an inpatient mental health facility in the last 30 days. The patient reports that he/she has a recent or current history of substance abuse. The patient reports that he/she has a prior history of suicide attempt and/or organized plan. The patient reports that he/she has experienced a significant life altering event in the last 30 days. The patient reports that he/she lacks adequate social support. The patient reports he/she has no significant chronic medical condition(s). Status: Patient is not a adding machine servicer or dependent. Transition of care: patient was not received from another setting of care. 07:58 Acuity: ROB Level 3 ml6 07:58 Method Of Arrival: Walkin/Carried/Asstd ml6 07:58 Red Flag criteria, patient assessed and taken directly to a bed. 6 Triage Assessment: 08:05 General: Appears in no apparent distress, Behavior is flat. Pain: Denies pain. Pt ml6 Declines HIV testing. The patient is triaged at the bedside. See Assessment in Nurses Notes section of ED record. Neurological: No deficits noted. Level of Consciousness is awake, alert, Oriented to person, place, time, Greens Picker are equal bilaterally Moves all extremities. Cardiovascular: No deficits noted. Capillary refill < 3 seconds is brisk in bilateral fingers toes Heart tones S1 S2 present Edema is absent. Pulses are all present. Respiratory: No deficits noted. Airway is patent Respiratory effort is even, unlabored, Respiratory pattern is regular, symmetrical, Breath sounds are clear bilaterally. GI: No deficits noted. Abdomen is flat, non- distended Bowel sounds present X 4 quads. Abd is soft and non tender X 4 quads. Historical: - Allergies: no known allergies; - Home Meds: 1. Paxil Unknown Oral Unknown once daily not taking 2. trazodone Unknown Oral Unknown nightly (Last dose: 06/06/2016 21:00) - PMHx: Substance Abuse; Anxiety; Depression; back pain; - PSHx: none; - Social history: Smoking status: Patient states was never smoker of tobacco. Patient uses alcohol occasionally. street drugs, cocaine, No barriers to communication noted, Speaks appropriately for age. - Family history: Not pertinent. - : The pt / caregiver states he / she is not on anticoagulants. Home medication list is obtained from the patient. - Exposure Risk Screening:: None identified. Screenin:58 Screening information is obtained from the patient. Fall risk: No risks identified. ml6 Assistance ADL's: requires no assistance with activities of daily living. Abuse/DV Screen: The patient / caregiver reports he/she is: not in a situation that causes fear, pain or injury. Nutritional screening: No deficits noted. Advance Directives: Currently, there is no health care proxy. home support is adequate. Assessment: 07:58 General: see triage assessment. ml6 08:58 Reassessment: Patient appears in no apparent distress at this time. General: Behavior kr3 is cooperative. Pain: Denies pain. Neurological: Level of Consciousness is awake, alert. Respiratory: Respiratory effort is even, unlabored. Derm: Skin is normal. 09:00 General: Appears in no apparent distress, comfortable, Behavior is appropriate for age, ml6 cooperative. Pain: Denies pain. Neurological: No deficits noted. Level of Consciousness is awake, alert, Oriented to person, place, time. Cardiovascular: No deficits noted. Capillary refill < 3 seconds is brisk in bilateral fingers toes Heart tones S1 S2 present. Respiratory: No deficits noted. Airway is patent Respiratory effort is even, unlabored, Respiratory pattern is regular, symmetrical, Breath sounds are clear bilaterally. GI: No deficits noted. 10:32 Reassessment: Patient appears in no apparent distress at this time. General: Behavior kr3 is cooperative. 12:24 General: Appears in no apparent distress, comfortable, Behavior is cooperative. Pain: mcp Denies pain. Neurological: No deficits noted. Respiratory: Airway is patent Respiratory effort is even, unlabored. Derm: Skin is pink, warm & dry. Mental Health Eval: 09:57 Mental health consult is initiated at 09:15. Status: The patient is not a rb adding machine servicer or dependent. [facility] Behavioral Health: The patient is not an established patient of [facility] Behavioral Health. Referral Information: Evaluation referral is generated by the patient himself / herself. The patient was referred for evaluation because Pt presented to ED after stopping his meds yesterday (do to ?? side effects, "stopped working"), had increased anxiety and depression. Pt reported threw away his meds early this morning because had thoughts of +SI by overdose on meds. Pt stated increased anxiety and anger; smashed his own phone on the sidewalk this morning on way to [facility] ED. Pt reported left [facility] yesterday after 7 days there do to increased anxiety. Pt stated "emotions flood by end of day". . Subjective: The patients chief complaint is increased depression and anxiety, +SI by overdose, substance abuse.. Delusions are denied. Patient's mood is anxious, dysphoric, hopeless, Hallucinations are denied. Mental Health history: depression, abusing marijuana. crack cocaine. panic attacks, sleep disturbance, suicide attempt by hanging at age 15 while in [facility]. Pt stated made a noose out of a sheet to hang himself, was stopped by the Guard. Mental Health Admissions: None. Current Outpatient Mental Health Services: Therapist / Agency: [facility]. Pt stated stopped going last fall.. PCP Dr. Linton in [place] for medication management. . Current living environment is The patient currently lives with his / her father, ,. Patient presents to Emergency Department with the following symptoms within the past 2 weeks: anger, antisocial behavior, anxiety, depressed mood, drug abuse, feelings of helplessness/hopelessness, non-compliance, panic attacks, poor impulse control, sleep disturbance - insomnia, suicidal ideation with plan for pills. Substance abuse: Patient uses cocaine, Last use was 15 hours ago. Patient uses marijuana daily. Mental status exam: Patients appearance is disheveled Patient's behavior is cooperative, minimally responsive Speech is mumbled. slow. Affect is flat. Mood is anxious. dysphoric. Hallucinations are denied. Appetite is normal. Memory is good. Energy level is lethargic. Content of thought is depressive. , Thought process is characterized by flight of ideas. Cognitive level is oriented to person, place, time and situation Patient's insight is poor. Judgement is fair. Rapport with interviewer is good. Suicidal Ideation present with a plan to kill self by pills. Homicidal ideation is not present. Disposition: Medically cleared for disposition by Jo-Ann Jiang MD Psychiatric Consult is performed by phone with Dr Sherwin Katz MD. [facility] Admission Criteria: The patient is experiencing suicidal ideation. The patient displays symptoms of severe psychiatric disorder resulting in disordered behavior and significant interference with his / her ability to maintain self care. Severe Anxiety. The patient requires continuous observation and/or control to protect self, others or property. The patient's care requires a multi-modal treatment plan under close supervision and coordination due to the complexity and severity of the patient's symptoms. Legal Status: Patient's legal status will be Emergency admission: 9.39. [place] Safe Act: [place] Safe Act is applicable to this patient. The patient poses a risk to self or other and the Nursing Senior Speech Pathologist has been notified. He/She will enter the patient's data. 11:08 Pt states preferred pharmacy is: [facility] in [facility] and [facility] in [place] . rb 11:44 DSM-V Differential Diagnosis: Major Depressive Disorder unspecified (F33.9). Awaiting: rb transfer to [facility]. 14:39 Insurance Pre-Certification: approved by: Beatrice\\Loretta\\[facility] for 5 days; 06/07- and review rb on 06/11/2016 with Laure #[phone]. [phone]. Auth# [id number].. Vital Signs: 08:06 Resp 16; Weight 81.65 kg (R); Height 6 ft. 3 in. (190.50 cm) (R); Pain 0/10; ml6 08:16 BP 128 / 77; Pulse 58; Resp 16; Temp 97.7(O); Pulse Ox 94% on R/A; dpm 11:48 BP 121 / 77; Pulse 67; Resp 16; Temp 97.5(O); Pulse Ox 95% on R/A; dpm 08:06 Body Mass Index 22.50 (81.65 kg, 190.50 cm) ml6 Vitals: 07:54 Log In Time: June 07, 2016 at 07:51. ml6 ED Course: 07:51 Patient visited by Kali Kimball Reg. lg 07:51 Patient moved to [facility] 07:52 Patient moved to [facility] ml6 07:59 Jo-Ann Jiang MD is Attending Physician. sd1 07:59 Patient visited by Jo-Ann Jiang MD. sd1 08:03 Triage Initiated ml6 08:19 Patient visited by Francisco Lacey. dpm 08:19 Pt greeted and oriented to ED. Patient advised of names of staff involved in care, dpm location of call more[place], wait times and NPO status. Patient has correct armband on for positive identification. Placed in gown. Placed in psych safe attire. Security observing. Property removed, inventory done, secured in belongings bag- placed in locked locker. Placed in locker 3. Psych Safety Check: Location: Psych Room. Visual Assessment: Cooperative. 08:22 Acetaminophen Level Sent. dpm 08:22 Basic Metabolic Profile Sent. dpm 08:22 Complete Blood Count Sent. dpm 08:22 Drug Eval Toxicology ED Only Sent. dpm 08:22 Ethyl Alcohol (ethanol) Sent. dpm 08:22 Liver Profile Sent. dpm 08:22 Salicylate Level Sent. dpm 08:22 Thyroid Stimulating Hormone Sent. dpm 08:30 Patient visited by Francisco Lacey. dpm 08:43 Patient visited by Francisco Lacey. dpm 08:57 Patient visited by Francisco Lacey. dpm 08:59 The patient / caregiver is instructed regarding the plan of care and ED course. kr3 08:59 Diet tray given. kr3 08:59 No IV's were initiated during this patient's visit. No procedures done that require kr3 assistance. 09:12 Patient visited by Francisco Lacey. dpm 09:31 Patient visited by Francisco Lacey. dpm 09:51 Patient visited by Francisco Lacey. dpm 10:06 Patient visited by Francisco Lacey. dpm 10:18 Patient visited by Francisco Lacey. dpm 10:33 Patient visited by Francisco Lacey. dpm 10:45 Patient visited by Francisco Lacey. dpm 10:54 Patient name changed from Renny\\Venus\\Marvel\\S\\Clifton\\S\\ to Renny\\Venus\\Malcolm\\S\\Clifton. EDMS 10:55 [facility] was [place] into [employer] and attached to record. lg 11:01 Patient visited by Francisco Lacey. dpm 11:19 Patient visited by Francisco Lacey. dpm 11:20 Sherwin Katz MD is Hospitalizing Provider. sd1 11:30 Patient visited by Francisco Lacey. dpm 11:34 EKG done. Reviewed by Jo-Ann Jiang MD. jrd 11:47 Patient visited by Francisco Lacey. dpm 11:47 [facility] Legal paperwork was scanned into [employer] and attached to record. rb 12:07 Patient visited by Francisco Lacey. dpm 12:15 Patient visited by Francisco Lacey. dpm 12:49 Patient moved to D1 dpm 06/08 09:11 T-Sheet-- Draft Copy was scanned into [employer] and attached to record. gb 09:12 ECG/EKG was scanned into [employer] and attached to record. gb Attachments: 11:47 [facility] Legal paperwork rb Order Results: Lab Order: Acetaminophen Level; SPEC'M 06/07/16 08:12 Test: ACETAMINOPHEN LEVEL; Value: < 2.0; Range: 10.0-30.0; Abnormal: Below low normal; Units: UG/ML; Status: F Lab Order: Basic Metabolic Profile; SPEC'M 06/07/16 08:12 Test: GLUCOSE, FASTING; Value: 85; Range: 70-105; Units: MG/DL; Status: F Test: BLOOD UREA NITROGEN; Value: 14; Range: 7-18; Units: MG/DL; Status: F Test: CREATININE FOR GFR; Value: 0.98; Range: 0.70-1.30; Units: MG/DL; Status: F Test: GLOMERULAR FILTRATION RATE; Value: > 60.0; Range: >60; Status: F Test: SODIUM LEVEL; Value: 144; Range: 136-145; Units: MEQ/L; Status: F Test: POTASSIUM SERUM; Value: 3.9; Range: 3.5-5.1; Units: MEQ/L; Status: F Test: CHLORIDE LEVEL; Value: 108; Range: 98-107; Abnormal: Above high normal; Units: MEQ/L; Status: F Test: CARBON DIOXIDE LEVEL; Value: 27; Range: 21-32; Units: MEQ/L; Status: F Test: ANION GAP; Value: 9; Range: 8-16; Units: MEQ/L; Status: F Test: CALCIUM LEVEL; Value: 9.0; Range: 8.5-10.1; Units: MG/DL; Status: F Test Note: ; Units are mL/min/1.73 m2 Chronic Kidney Disease Staging per NKF: Stage I & II GFR >=60 Normal to Mildly Decreased Stage III GFR 30-59 Moderately Decreased Stage IV GFR 15-29 Severely Decreased Stage V GFR <15 Very Little GFR Left ESRD GFR <15 on AADC PLANS STAFF OFFICER Lab Order: Complete Blood Count; [facility]' 06/07/16 08:12 Test: WHITE BLOOD COUNT; Value: 5.5; Range: 4.0-10.0; Units: K/mm3; Status: F Test: RED BLOOD COUNT; Value: 5.37; Range: 4.30-6.10; Units: M/mm3; Status: F Test: HEMOGLOBIN; Value: 16.0; Range: 14.0-18.0; Units: g/dl; Status: F Test: HEMATOCRIT; Value: 46.8; Range: 42.0-52.0; Units: %; Status: F Test: MEAN CORPUSCULAR VOLUME; Value: 87.0; Range: 80.0-96.0; Units: fl; Status: F Test: MEAN CORPUSCULAR HEMOGLOBIN; Value: 29.8; Range: 27.0-33.0; Units: pg; Status: F Test: MEAN CORPUSCULAR HGB CONC; Value: 34.2; Range: 32.0-36.5; Units: g/dl; Status: F Test: RED CELL DISTRIBUTION WIDTH; Value: 13.6; Range: 11.5-14.5; Units: %; Status: F Test: PLATELET COUNT, AUTOMATED; Value: 198; Range: 150-450; Units: k/mm3; Status: F Lab Order: Drug Eval Toxicology ED Only; SPEC'M 06/07/16 08:12 Test: AMPHETAMINES LEVEL URINE; Value: NEGATIVE; Range: NEGATIVE; Status: F Test: BARBITURATES URINE; Value: NEGATIVE; Range: NEGATIVE; Status: F Test: BENZODIAZEPINES URINE; Value: NEGATIVE; Range: NEGATIVE; Status: F Test: CANNABINOIDS URINE; Value: POSITIVE; Range: NEGATIVE; Abnormal: Above high normal; Status: F Test: COCAINE METABOLITE URINE; Value: POSITIVE; Range: NEGATIVE; Abnormal: Above high normal; Status: F Test: METHADONE URINE; Value: NEGATIVE; Range: NEGATIVE; Status: F Test: OPIATES URINE; Value: NEGATIVE; Range: NEGATIVE; Status: F Test: TRICYCLIC ANTIDEPRESS URINE; Value: NEGATIVE; Range: NEGATIVE; Status: F Test Note: ; FALSE POSITIVE RESULTS CAN BE CAUSED BY THE USE OF PANTOPRAZOLE (PROTONIX). Lab Order: Ethyl Alcohol (ethanol); SPEC'M 06/07/16 08:12 Test: ETHYL ALCOHOL (ETHANOL); Value: < 0.003; Range: 0.000-0.010; Units: %; Status: F Lab Order: Liver Profile; SPEC'M 06/07/16 08:12 Test: AST/SGOT; Value: 26; Range: 15-37; Units: U/L; Status: F Test: ALT/SGPT; Value: 22; Range: 12-78; Units: U/L; Status: F Test: ALKALINE PHOSPHATASE; Value: 54; Range: 45-117; Units: U/L; Status: F Test: BILIRUBIN,TOTAL; Value: 0.7; Range: 0.2-1.0; Units: MG/DL; Status: F Test: BILIRUBIN,DIRECT; Value: 0.2; Range: 0.0-0.2; Units: MG/DL; Status: F Test: TOTAL PROTEIN; Value: 6.6; Range: 6.4-8.2; Units: GM/DL; Status: F Test: ALBUMIN; Value: 4.0; Range: 3.2-5.2; Units: GM/DL; Status: F Test: ALBUMIN/GLOBULIN RATIO; Value: 1.54; Range: 1.00-1.93; Status: F Lab Order: Salicylate Level; SPEC'M 06/07/16 08:12 Test: SALICYLATE LEVEL; Value: < 1.7; Range: 5.0-30.0; Abnormal: Below low normal; Units: MG/DL; Status: F Lab Order: Thyroid Stimulating Hormone; SPEC'M 06/07/16 08:12 Test: THYROID STIMULATING HORMONE; Value: 1.490; Range: 0.358-3.740; Units: uIU/ML; Status: F Lab Order: Creatine Phosphokinase; SPEC'M 06/07/16 08:12 Test: CPK CREATINE PHOSPHOKINASE; Value: 170; Range: 39-308; Units: U/L; Status: F Outcome: 06/07 08:59 No special radiology studies were completed. kr3 11:20 Decision to Hospitalize by Provider. sd1 12:25 Discharge Assessment: patient administered narcotics - no. The following High Risk [facility] Discharge criteria are identified: None. Admitted to Psych accompanied by tech, via wheelchair, with chart. Condition: stable. 12:52 Patient left the ED. [facility] Signatures: Dispatcher [employer] Jo-Ann Cabrera MD MD sd1 Laure Cruz RN RN mcp Michaelle Ramos, PSA PSA rb Stacy Kim, Reg Reg gb Kali Kimball, Reg Reg lg Prabha Garcia RN RN kr3 Dontrell Patton RN RN ml6 Francisco Lacey dpm, Joseph, JAKOB INGREDIENT SCALER jrd Chart Complete MTDD
--- NOTE | 2016-06-09 13:52 | EDDOCDS ---
Physician Documentation [facility] Name: Renny Lazo Age: 30 yrs Sex: Male : 1985 Arrival Date: 06/07/2016 Time: 07:50 Bed D1 Private MD: Disposition: 06/07/16 11:20 Hospitalization ordered by Sherwin Katz for Inpatient Admission. Preliminary diagnosis is Suicidal ideations. - Bed requested for Admit. - Status is Inpatient Admission. mcp - Condition is Stable. - Problem is new. - Symptoms are unchanged. Historical: - Allergies: no known allergies; - Home Meds: 1. Paxil Unknown Oral Unknown once daily not taking 2. trazodone Unknown Oral Unknown nightly (Last dose: 06/06/2016 21:00) - PMHx: Substance Abuse; Anxiety; Depression; back pain; - PSHx: none; - Social history: Smoking status: Patient states was never smoker of tobacco. Patient uses alcohol occasionally. street drugs, cocaine, No barriers to communication noted, Speaks appropriately for age. - Family history: Not pertinent. - : The pt / caregiver states he / she is not on anticoagulants. Home medication list is obtained from the patient. - Exposure Risk Screening:: None identified. Vital Signs: 06/07 08:06 Resp 16; Weight 81.65 kg / 180.01 lbs (R); Height 6 ft. 3 in. (190.50 cm) (R); Pain ml6 0/10; 08:16 BP 128 / 77; Pulse 58; Resp 16; Temp 97.7(O); Pulse Ox 94% on R/A; dpm 11:48 BP 121 / 77; Pulse 67; Resp 16; Temp 97.5(O); Pulse Ox 95% on R/A; dpm 08:06 Body Mass Index 22.50 (81.65 kg, 190.50 cm) ml6 MDM: 07:59 Consult PFS/PSA/Bindery Cutter Operator ordered. sd1 07:59 Consult PFS/PSA/Bindery Cutter Operator: Patient's case requires discussion with on-call sd1 Psychiatrist ordered. 07:59 PSA/PFS to call Nursing Fish Cleaner, to enter patient data on [place] Safe Act if patient sd1 involuntarily admitted or transferred for SI or HI ordered. 07:59 Confirm accurate psychiatric medication list and times of last dosage ordered. sd1 07:59 Detain Pt Until Medically/PFS Cleared ordered. sd1 08:00 Acetaminophen Level Ordered. EDMS 08:00 Basic Metabolic Profile Ordered. EDMS 08:00 Complete Blood Count Ordered. EDMS 08:00 Drug Eval Toxicology ED Only Ordered. EDMS 08:00 Ethyl Alcohol (ethanol) Ordered. EDMS 08:00 Liver Profile Ordered. EDMS 08:00 Salicylate Level Ordered. EDMS 08:00 Thyroid Stimulating Hormone Ordered. EDMS 08:01 Creatine Phosphokinase Ordered. EDMS 08:01 ECG WITH READING ER PHYS+CARDIAG ordered. EDMS 08:09 BED REQUEST+ADM ordered. EDMS 08:14 REGULAR DIET PLASTIC GAINES+DIET ordered. EDMS 09:00 Acetaminophen Level Reviewed. sd1 09:00 Basic Metabolic Profile Reviewed. sd1 09:00 Drug Eval Toxicology ED Only Reviewed. sd1 09:00 Salicylate Level Reviewed. sd1 09:00 Complete Blood Count Reviewed. sd1 09:00 Ethyl Alcohol (ethanol) Reviewed. sd1 09:00 Liver Profile Reviewed. sd1 09:00 Thyroid Stimulating Hormone Reviewed. sd1 09:00 Creatine Phosphokinase Reviewed. sd1 09:37 Consult PFS/PSA/Bindery Cutter Operator complete. rb 10:00 Financial registration complete. lg 10:55 [facility] [place] Agreement was scanned into [employer] and attached to record. lg 11:20 REGULAR DIET PLASTIC GAINES+DIET ordered. EDMS 11:22 Admit to [facility]: ordered. EDMS 11:47 [facility] Legal paperwork was scanned into [employer] and attached to record. rb 11:57 Consult PFS/PSA/Bindery Cutter Operator: Patient's case requires discussion with on-call rb Psychiatrist complete. 11:57 PSA/PFS to call Nursing Fish Cleaner, to enter patient data on [place] Safe Act if patient rb involuntarily admitted or transferred for SI or HI complete. 06/08 09:11 T-Sheet-- Draft Copy was scanned into [employer] and attached to record. gb 09:12 ECG/EKG was scanned into [employer] and attached to record. gb Signatures: Dispatcher [employer] EDCT Jo-Ann Jiang MD MD sd1 Laure Cruz RN RN mcp Michaelle Ramos, PSA PSA rb Stacy Kim, Reg Reg gb Kali Kimball, Reg Reg lg Prabha Garcia RN RN john3 Dontrell Patton, RN RN ml6 The chart was reviewed and I authenticate all verbal orders and agree with the evaluation and treatment provided.Attachments: 06/07 10:55 [facility] Payment Agreement lg 06/08 09:11 T-Sheet-- Draft Copy gb 09:12 ECG/EKG gb Chart Complete MTDD
--- NOTE | 2016-06-09 13:53 | EDDOCDS ---
Nurse's Notes [facility] Name: Renny Lazo Age: 30 yrs Sex: Male : 1985 Arrival Date: 06/07/2016 Time: 07:50 Bed D1 Private MD: Diagnosis: Suicidal ideations Presentation: 06/07 07:58 Presenting complaint: Patient states: states that he was hospitalized in [place] [id number] for cocaine abuse, seen at [facility], D/C from there states had SI with plan to OD on trazadone and paxil lastnight. Mental Health Triage Level: Level 2: The patient displays active suicidal ideations. Adult Sepsis Screening: The patient does not have new or worsening altered mentation. Patient's respiratory rate is less than 22. Systolic blood pressure is greater than 100. Patient has a qSOFA score of 0- Negative Sepsis Screen. Mental Health Triage Level: Level 2: The patient displays active suicidal ideations. Suicide/Homicide risk assessment- The patient admits to and/or has been reported to be having suicidal ideations. The patient reports that he/she has been admitted to an inpatient mental health facility in the last 30 days. The patient reports that he/she has a recent or current history of substance abuse. The patient reports that he/she has a prior history of suicide attempt and/or organized plan. The patient reports that he/she has experienced a significant life altering event in the last 30 days. The patient reports that he/she lacks adequate social support. The patient reports he/she has no significant chronic medical condition(s). Status: Patient is not a automotive service porter or dependent. Transition of care: patient was not received from another setting of care. 07:58 Acuity: ROB Level 3 ml6 07:58 Method Of Arrival: Walkin/Carried/Asstd ml6 07:58 Red Flag criteria, patient assessed and taken directly to a bed. 6 Triage Assessment: 08:05 General: Appears in no apparent distress, Behavior is flat. Pain: Denies pain. Pt ml6 Declines HIV testing. The patient is triaged at the bedside. See Assessment in Nurses Notes section of ED record. Neurological: No deficits noted. Level of Consciousness is awake, alert, Oriented to person, place, time, Public Health Advisor are equal bilaterally Moves all extremities. Cardiovascular: No deficits noted. Capillary refill < 3 seconds is brisk in bilateral fingers toes Heart tones S1 S2 present Edema is absent. Pulses are all present. Respiratory: No deficits noted. Airway is patent Respiratory effort is even, unlabored, Respiratory pattern is regular, symmetrical, Breath sounds are clear bilaterally. GI: No deficits noted. Abdomen is flat, non- distended Bowel sounds present X 4 quads. Abd is soft and non tender X 4 quads. Historical: - Allergies: no known allergies; - Home Meds: 1. Paxil Unknown Oral Unknown once daily not taking 2. trazodone Unknown Oral Unknown nightly (Last dose: 06/06/2016 21:00) - PMHx: Substance Abuse; Anxiety; Depression; back pain; - PSHx: none; - Social history: Smoking status: Patient states was never smoker of tobacco. Patient uses alcohol occasionally. street drugs, cocaine, No barriers to communication noted, Speaks appropriately for age. - Family history: Not pertinent. - : The pt / caregiver states he / she is not on anticoagulants. Home medication list is obtained from the patient. - Exposure Risk Screening:: None identified. Screenin:58 Screening information is obtained from the patient. Fall risk: No risks identified. ml6 Assistance ADL's: requires no assistance with activities of daily living. Abuse/DV Screen: The patient / caregiver reports he/she is: not in a situation that causes fear, pain or injury. Nutritional screening: No deficits noted. Advance Directives: Currently, there is no health care proxy. home support is adequate. Assessment: 07:58 General: see triage assessment. ml6 08:58 Reassessment: Patient appears in no apparent distress at this time. General: Behavior kr3 is cooperative. Pain: Denies pain. Neurological: Level of Consciousness is awake, alert. Respiratory: Respiratory effort is even, unlabored. Derm: Skin is normal. 09:00 General: Appears in no apparent distress, comfortable, Behavior is appropriate for age, ml6 cooperative. Pain: Denies pain. Neurological: No deficits noted. Level of Consciousness is awake, alert, Oriented to person, place, time. Cardiovascular: No deficits noted. Capillary refill < 3 seconds is brisk in bilateral fingers toes Heart tones S1 S2 present. Respiratory: No deficits noted. Airway is patent Respiratory effort is even, unlabored, Respiratory pattern is regular, symmetrical, Breath sounds are clear bilaterally. GI: No deficits noted. 10:32 Reassessment: Patient appears in no apparent distress at this time. General: Behavior kr3 is cooperative. 12:24 General: Appears in no apparent distress, comfortable, Behavior is cooperative. Pain: mcp Denies pain. Neurological: No deficits noted. Respiratory: Airway is patent Respiratory effort is even, unlabored. Derm: Skin is pink, warm & dry. Mental Health Eval: 09:57 Mental health consult is initiated at 09:15. Status: The patient is not a rb automotive service porter or dependent. [facility]: The patient is not an established patient of [facility]. Referral Information: Evaluation referral is generated by the patient himself / herself. The patient was referred for evaluation because Pt presented to ED after stopping his meds yesterday (do to ?? side effects, "stopped working"), had increased anxiety and depression. Pt reported threw away his meds early this morning because had thoughts of +SI by overdose on meds. Pt stated increased anxiety and anger; smashed his own phone on the sidewalk this morning on way to [facility] ED. Pt reported left [facility] yesterday after 7 days there do to increased anxiety. Pt stated "emotions flood by end of day". . Subjective: The patients chief complaint is increased depression and anxiety, +SI by overdose, substance abuse.. Delusions are denied. Patient's mood is anxious, dysphoric, hopeless, Hallucinations are denied. Mental Health history: depression, abusing marijuana. crack cocaine. panic attacks, sleep disturbance, suicide attempt by hanging at age 15 while in [employer]. Pt stated made a noose out of a sheet to hang himself, was stopped by the Guard. Mental Health Admissions: None. Current Outpatient Mental Health Services: Therapist / Agency: [facility]. Pt stated stopped going last fall.. PCP Dr. Linton in [place] for medication management. . Current living environment is The patient currently lives with his / her father, ,. Patient presents to Emergency Department with the following symptoms within the past 2 weeks: anger, antisocial behavior, anxiety, depressed mood, drug abuse, feelings of helplessness/hopelessness, non-compliance, panic attacks, poor impulse control, sleep disturbance - insomnia, suicidal ideation with plan for pills. Substance abuse: Patient uses cocaine, Last use was 15 hours ago. Patient uses marijuana daily. Mental status exam: Patients appearance is disheveled Patient's behavior is cooperative, minimally responsive Speech is mumbled. slow. Affect is flat. Mood is anxious. dysphoric. Hallucinations are denied. Appetite is normal. Memory is good. Energy level is lethargic. Content of thought is depressive. , Thought process is characterized by flight of ideas. Cognitive level is oriented to person, place, time and situation Patient's insight is poor. Judgement is fair. Rapport with interviewer is good. Suicidal Ideation present with a plan to kill self by pills. Homicidal ideation is not present. Disposition: Medically cleared for disposition by Jo-Ann Jiang MD Psychiatric Consult is performed by phone with Dr Sherwin Katz MD. [facility] Admission Criteria: The patient is experiencing suicidal ideation. The patient displays symptoms of severe psychiatric disorder resulting in disordered behavior and significant interference with his / her ability to maintain self care. Severe Anxiety. The patient requires continuous observation and/or control to protect self, others or property. The patient's care requires a multi-modal treatment plan under close supervision and coordination due to the complexity and severity of the patient's symptoms. Legal Status: Patient's legal status will be Emergency admission: 9.39. [place] Safe Act: [place] Safe Act is applicable to this patient. The patient poses a risk to self or other and the Nursing Dust Brush Assembler has been notified. He/She will enter the patient's data. 11:08 Pt states preferred pharmacy is: [facility] in [facility] and [facility] in [place] . rb 11:44 DSM-V Differential Diagnosis: Major Depressive Disorder unspecified (F33.9). Awaiting: rb transfer to [facility]. 14:39 Insurance Pre-Certification: approved by: Beatrice\\Loretta\\[facility] for 5 days; 06/07- and review rb on 06/11/2016 with Laure #[phone] ext. [phone]. Auth# [id number].. Vital Signs: 08:06 Resp 16; Weight 81.65 kg (R); Height 6 ft. 3 in. (190.50 cm) (R); Pain 0/10; ml6 08:16 BP 128 / 77; Pulse 58; Resp 16; Temp 97.7(O); Pulse Ox 94% on R/A; dpm 11:48 BP 121 / 77; Pulse 67; Resp 16; Temp 97.5(O); Pulse Ox 95% on R/A; dpm 08:06 Body Mass Index 22.50 (81.65 kg, 190.50 cm) ml6 Vitals: 07:54 Log In Time: June 07, 2016 at 07:51. ml6 ED Course: 07:51 Patient visited by Kali Kimball Reg. lg 07:51 Patient moved to [facility] 07:52 Patient moved to [facility] ml6 07:59 Jo-Ann Jiang MD is Attending Physician. sd1 07:59 Patient visited by Jo-Ann Jiang MD. sd1 08:03 Triage Initiated ml6 08:19 Patient visited by Francisco Lacey. dpm 08:19 Pt greeted and oriented to ED. Patient advised of names of staff involved in care, dpm location of call [place], wait times and NPO status. Patient has correct armband on for positive identification. Placed in gown. Placed in psych safe attire. Security observing. Property removed, inventory done, secured in belongings bag- placed in locked locker. Placed in locker 3. Psych Safety Check: Location: Psych Room. Visual Assessment: Cooperative. 08:22 Acetaminophen Level Sent. dpm 08:22 Basic Metabolic Profile Sent. dpm 08:22 Complete Blood Count Sent. dpm 08:22 Drug Eval Toxicology ED Only Sent. dpm 08:22 Ethyl Alcohol (ethanol) Sent. dpm 08:22 Liver Profile Sent. dpm 08:22 Salicylate Level Sent. dpm 08:22 Thyroid Stimulating Hormone Sent. dpm 08:30 Patient visited by Francisco Lacey. dpm 08:43 Patient visited by Francisco Lacey. dpm 08:57 Patient visited by Francisco Lacey. dpm 08:59 The patient / caregiver is instructed regarding the plan of care and ED course. kr3 08:59 Diet tray given. kr3 08:59 No IV's were initiated during this patient's visit. No procedures done that require kr3 assistance. 09:12 Patient visited by Francisco Lacey. dpm 09:31 Patient visited by Francisco Lacey. dpm 09:51 Patient visited by Francisco Lacey. dpm 10:06 Patient visited by Francisco Lacey. dpm 10:18 Patient visited by Francisco Lacey. dpm 10:33 Patient visited by Francisco Lacey. dpm 10:45 Patient visited by Francisco Lacey. dpm 10:54 Patient name changed from Renny\\Venus\\Marvel\\S\\Clifton\\S\\ to Renny\\Venus\\Malcolm\\S\\Clifton. EDMS 10:55 [facility] Payment Agreement was scanned into [email or web address] and attached to record. lg 11:01 Patient visited by Francisco Lacey. dpm 11:19 Patient visited by Francisco Lacey. dpm 11:20 Sherwin Katz MD is Hospitalizing Provider. sd1 11:30 Patient visited by Francisco Lacey. dpm 11:34 EKG done. Reviewed by Jo-Ann Jiang MD. jrd 11:47 Patient visited by Francisco Lacey. dpm 11:47 [facility] Legal paperwork was scanned into [email or web address] and attached to record. rb 12:07 Patient visited by Francisco Lacey. dpm 12:15 Patient visited by Francisco Lacey. dpm 12:49 Patient moved to D1 dpm 06/08 09:11 T-Sheet-- Draft Copy was scanned into [email or web address] and attached to record. gb 09:12 ECG/EKG was scanned into [email or web address] and attached to record. gb Attachments: 11:47 MHE Legal paperwork rb Order Results: Lab Order: Acetaminophen Level; SPEC'M 06/07/16 08:12 Test: ACETAMINOPHEN LEVEL; Value: < 2.0; Range: 10.0-30.0; Abnormal: Below low normal; Units: UG/ML; Status: F Lab Order: Basic Metabolic Profile; SPEC'M 06/07/16 08:12 Test: GLUCOSE, FASTING; Value: 85; Range: 70-105; Units: MG/DL; Status: F Test: BLOOD UREA NITROGEN; Value: 14; Range: 7-18; Units: MG/DL; Status: F Test: CREATININE FOR GFR; Value: 0.98; Range: 0.70-1.30; Units: MG/DL; Status: F Test: GLOMERULAR FILTRATION RATE; Value: > 60.0; Range: >60; Status: F Test: SODIUM LEVEL; Value: 144; Range: 136-145; Units: MEQ/L; Status: F Test: POTASSIUM SERUM; Value: 3.9; Range: 3.5-5.1; Units: MEQ/L; Status: F Test: CHLORIDE LEVEL; Value: 108; Range: 98-107; Abnormal: Above high normal; Units: MEQ/L; Status: F Test: CARBON DIOXIDE LEVEL; Value: 27; Range: 21-32; Units: MEQ/L; Status: F Test: ANION GAP; Value: 9; Range: 8-16; Units: MEQ/L; Status: F Test: CALCIUM LEVEL; Value: 9.0; Range: 8.5-10.1; Units: MG/DL; Status: F Test Note: ; Units are mL/min/1.73 m2 Chronic Kidney Disease Staging per NKF: Stage I & II GFR >=60 Normal to Mildly Decreased Stage III GFR 30-59 Moderately Decreased Stage IV GFR 15-29 Severely Decreased Stage V GFR <15 Very Little GFR Left ESRD GFR <15 on STUD MASTER/MISTRESS Lab Order: Complete Blood Count; [facility]' 06/07/16 08:12 Test: WHITE BLOOD COUNT; Value: 5.5; Range: 4.0-10.0; Units: K/mm3; Status: F Test: RED BLOOD COUNT; Value: 5.37; Range: 4.30-6.10; Units: M/mm3; Status: F Test: HEMOGLOBIN; Value: 16.0; Range: 14.0-18.0; Units: g/dl; Status: F Test: HEMATOCRIT; Value: 46.8; Range: 42.0-52.0; Units: %; Status: F Test: MEAN CORPUSCULAR VOLUME; Value: 87.0; Range: 80.0-96.0; Units: fl; Status: F Test: MEAN CORPUSCULAR HEMOGLOBIN; Value: 29.8; Range: 27.0-33.0; Units: pg; Status: F Test: MEAN CORPUSCULAR HGB CONC; Value: 34.2; Range: 32.0-36.5; Units: g/dl; Status: F Test: RED CELL DISTRIBUTION WIDTH; Value: 13.6; Range: 11.5-14.5; Units: %; Status: F Test: PLATELET COUNT, AUTOMATED; Value: 198; Range: 150-450; Units: k/mm3; Status: F Lab Order: Drug Eval Toxicology ED Only; SPEC'M 06/07/16 08:12 Test: AMPHETAMINES LEVEL URINE; Value: NEGATIVE; Range: NEGATIVE; Status: F Test: BARBITURATES URINE; Value: NEGATIVE; Range: NEGATIVE; Status: F Test: BENZODIAZEPINES URINE; Value: NEGATIVE; Range: NEGATIVE; Status: F Test: CANNABINOIDS URINE; Value: POSITIVE; Range: NEGATIVE; Abnormal: Above high normal; Status: F Test: COCAINE METABOLITE URINE; Value: POSITIVE; Range: NEGATIVE; Abnormal: Above high normal; Status: F Test: METHADONE URINE; Value: NEGATIVE; Range: NEGATIVE; Status: F Test: OPIATES URINE; Value: NEGATIVE; Range: NEGATIVE; Status: F Test: TRICYCLIC ANTIDEPRESS URINE; Value: NEGATIVE; Range: NEGATIVE; Status: F Test Note: ; FALSE POSITIVE RESULTS CAN BE CAUSED BY THE USE OF PANTOPRAZOLE (PROTONIX). Lab Order: Ethyl Alcohol (ethanol); SPEC'M 06/07/16 08:12 Test: ETHYL ALCOHOL (ETHANOL); Value: < 0.003; Range: 0.000-0.010; Units: %; Status: F Lab Order: Liver Profile; SPEC'M 06/07/16 08:12 Test: AST/SGOT; Value: 26; Range: 15-37; Units: U/L; Status: F Test: ALT/SGPT; Value: 22; Range: 12-78; Units: U/L; Status: F Test: ALKALINE PHOSPHATASE; Value: 54; Range: 45-117; Units: U/L; Status: F Test: BILIRUBIN,TOTAL; Value: 0.7; Range: 0.2-1.0; Units: MG/DL; Status: F Test: BILIRUBIN,DIRECT; Value: 0.2; Range: 0.0-0.2; Units: MG/DL; Status: F Test: TOTAL PROTEIN; Value: 6.6; Range: 6.4-8.2; Units: GM/DL; Status: F Test: ALBUMIN; Value: 4.0; Range: 3.2-5.2; Units: GM/DL; Status: F Test: ALBUMIN/GLOBULIN RATIO; Value: 1.54; Range: 1.00-1.93; Status: F Lab Order: Salicylate Level; SPEC'M 06/07/16 08:12 Test: SALICYLATE LEVEL; Value: < 1.7; Range: 5.0-30.0; Abnormal: Below low normal; Units: MG/DL; Status: F Lab Order: Thyroid Stimulating Hormone; SPEC'M 06/07/16 08:12 Test: THYROID STIMULATING HORMONE; Value: 1.490; Range: 0.358-3.740; Units: uIU/ML; Status: F Lab Order: Creatine Phosphokinase; SPEC'M 06/07/16 08:12 Test: CPK CREATINE PHOSPHOKINASE; Value: 170; Range: 39-308; Units: U/L; Status: F Outcome: 06/07 08:59 No special radiology studies were completed. kr3 11:20 Decision to Hospitalize by Provider. sd1 12:25 Discharge Assessment: patient administered narcotics - no. The following High Risk [facility] Discharge criteria are identified: None. Admitted to Psych accompanied by tech, via wheelchair, with chart. Condition: stable. 12:52 Patient left the ED. [facility] Signatures: Dispatcher [employer] Jo-Ann Cabrera MD MD sd1 Laure Cruz RN RN mcp Michaelle Ramos, PSA PSA rb Stacy Kim, Reg Reg gb Kali Kimball, Reg Reg lg Prabha Garcia RN RN kr3 Dontrell Patton RN RN ml6 Francisco Lacey dpm, Joseph, JAKOB ROLLER CHECKER jrd Chart Complete MTDD
[2016-06-09] MEDS: IBUPROFEN 400 MG TAB PO PRN ×2 (15:11→21:48)
[2016-06-09 18:01] VITALS: BP 120/66
[2016-06-10 06:07] VITALS: BP 107/58
[2016-06-10] MEDS: IBUPROFEN 400 MG TAB PO PRN ×2 (11:45→19:41)
[2016-06-10 18:00] VITALS: BP 144/78
--- NOTE | 2016-06-10 23:35 | IPNPDOC ---
[facility] Progress Note Progress Note DATE OF SERVICE: 06/09/16 SUBJECTIVE: Patient reports his mood as better this morning. Patient reports making odd and inappropriate statements per his family which prompted his leaving [facility] rehabilitation and self presenting to [facility] and subsequent transfer to [facility]. Patient will not elaborate on the details of these inappropriate statements. Patient reports his mother told him to lie that he had suicidal ideations so that he would be kept in the hospital. He currently is focused on going home. He will not elaborate on why he felt he had to lie to be admitted or his abnormal thoughts and statements. Patient reports sleeping has improved. Patient reports appetite is within normal limits. Patient denies headache, chest pain, abdominal pain and reports urination and bowel movements are within normal limits. Patient declines offer to start antidepressants currently. Patient reports he would like to pursue psychotherapy once discharged. Patient denies SI/HI and denies AH/VH. OBJECTIVE: VITAL SIGNS: See below. CURRENT MEDICATIONS: See below. MENTAL STATUS EXAMINATION: Patient is a [30yo male ], [looks stated age and in no acute distress.]. Speech: Is [RRR and spontaneous]. Thought processes: [Clear, linear and Goal directed]. Rate of thoughts: [Appropriate]. Thought content: [focused on discharge, expresses desire for psychotherapy instead of pharmacotherapy]. Abstract reasoning: [Intact]. Associations: [ Intact]. Abnormal or psychotic thoughts: [No perceptual issues noted] Judgment: [poor] Insight: [poor] Oriented to: [Time, place and person.] Recent and Remote Memory: [Immediate, short-term and long-term memory is intact] . Attention Span and Concentration: [ Good]. Fund of knowledge: [ Good]. Mood: [ depressed]. Affect: [depressed ]. ASSESSMENT: 1. MDD, R 2. Cocaine use d/o 3. Cannabis use d/o PLAN: 1. Patient declines offer to start antidepressants currently. 2. Patient reports he would like to pursue psychotherapy once discharged. TIME SPENT: [30] minutes. Vital Signs Vital Signs Date Time Temp Pulse Resp B/P Pulse Ox O2 Delivery O2 Flow Rate FiO2 06/10/16 18:00 97.6 60 16 144/78 06/07/16 13:16 96 Room Air Current Medications Current Medications Medications (Trade) Dose Ordered Sig/Steve Route PRN Reason Start Time Stop Time Status Last Admin Dose Admin Al Hydrox/Mg Hydrox/Simethicone (Mylanta) 30 ml Q4HP PRN PO HEARTBURN/INDIGESTION 06/07/16 17:45 07/07/16 17:44 Home Med (Med Rec Complete!) ASDIRECTED XX 06/07/16 08:30 06/07/16 08:35 DC Hydroxyzine HCl (Atarax) 50 mg Q6HP PRN PO ANXIETY 06/07/16 17:45 07/07/16 17:44 06/09/16 13:37 Ibuprofen (Advil) 400 mg Q6HP PRN PO PAIN 06/07/16 17:45 07/07/16 17:44 06/10/16 19:41 Magnesium Hydroxide (Milk Of Magnesia) 30 ml DAILYPRN PRN PO CONSTIPATION 06/07/16 17:45 07/07/16 17:44 Trazodone HCl (Desyrel) 150 mg QHSP PRN PO INSOMNIA 06/07/16 20:45 07/07/16 20:44 06/08/16 21:24 Allergies Coded Allergies: Bee Venom (Unverified Allergy, Mild, 06/07/16) No Known Drug Allergy (Unverified Allergy, Unknown, 06/07/16) BRAD PRATT MD Jun 10, 2016 23:35
--- NOTE | 2016-06-10 23:36 | IPNPDOC ---
[facility] Progress Note Progress Note DATE OF SERVICE: 06/10/16 SUBJECTIVE: Patient reports his mood as okay this morning. Sleep continues to improve. Patient continues to be restrictive in disclosing the nature of his presenting symptoms. He has expressed no bizarre or inappropriate thoughts. He is social in the milieu. He has not been inappropriate or bizarre in behavior. Patient declines offer to start antidepressants currently. Patient reports he would like to pursue psychotherapy once discharged. Patient denies SI/HI and denies AH/VH. OBJECTIVE: VITAL SIGNS: See below. CURRENT MEDICATIONS: See below. MENTAL STATUS EXAMINATION: Patient is a [30yo male ], [looks stated age and in no acute distress.]. Speech: Is [RRR and spontaneous]. Thought processes: [Clear, linear and Goal directed]. Rate of thoughts: [Appropriate]. Thought content: [focused on discharge]. Abstract reasoning: [Intact]. Associations: [ Intact]. Abnormal or psychotic thoughts: [No perceptual issues noted] Judgment: [poor] Insight: [poor] Oriented to: [Time, place and person.] Recent and Remote Memory: [Immediate, short-term and long-term memory is intact] . Attention Span and Concentration: [ Good]. Fund of knowledge: [ Good]. Mood: [ depressed]. Affect: [depressed ]. ASSESSMENT: 1. MDD, R 2. Cocaine use d/o 3. Cannabis use d/o PLAN: 1. Patient declines offer to start antidepressants currently. 2. Patient reports he would like to pursue psychotherapy once discharged. TIME SPENT: [30] minutes. Vital Signs Vital Signs Date Time Temp Pulse Resp B/P Pulse Ox O2 Delivery O2 Flow Rate FiO2 06/10/16 18:00 97.6 60 16 144/78 06/07/16 13:16 96 Room Air Current Medications Current Medications Medications (Trade) Dose Ordered Sig/Steve Route PRN Reason Start Time Stop Time Status Last Admin Dose Admin Al Hydrox/Mg Hydrox/Simethicone (Mylanta) 30 ml Q4HP PRN PO HEARTBURN/INDIGESTION 06/07/16 17:45 07/07/16 17:44 Home Med (Med Rec Complete!) ASDIRECTED XX 06/07/16 08:30 06/07/16 08:35 DC Hydroxyzine HCl (Atarax) 50 mg Q6HP PRN PO ANXIETY 06/07/16 17:45 07/07/16 17:44 06/09/16 13:37 Ibuprofen (Advil) 400 mg Q6HP PRN PO PAIN 06/07/16 17:45 07/07/16 17:44 06/10/16 19:41 Magnesium Hydroxide (Milk Of Magnesia) 30 ml DAILYPRN PRN PO CONSTIPATION 06/07/16 17:45 07/07/16 17:44 Trazodone HCl (Desyrel) 150 mg QHSP PRN PO INSOMNIA 06/07/16 20:45 07/07/16 20:44 06/08/16 21:24 Allergies Coded Allergies: Bee Venom (Unverified Allergy, Mild, 06/07/16) No Known Drug Allergy (Unverified Allergy, Unknown, 06/07/16) BRAD PRATT MD Jun 10, 2016 23:36
[2016-06-11 06:46] VITALS: BP 104/56
--- NOTE | 2016-06-11 13:16 | DS.PDOC ---
[facility] Discharge Summary Discharge Summary DATE OF ADMISSION: Jun 07, 2016 at 12:35 DATE OF DISCHARGE: Jun 11, 2016 DISCHARGE DIAGNOSES: Major Depressive disorder, recurrent, Cocaine use disorder , Marijuana use disorder. REASON FOR ADMISSION: "I think it was a reaction to my meds". Pt. states he had suicidal thoughts of overdosing on his meds. Pt. states situational stressors "Which I don't want to get in to" also aggravated the potential med reaction. Pt. does not want to talk about the fact he was in residential rehab for cocaine use disorder. Pt. also feels his lack of sleep made his depression and anxiety symptoms worse as well. TREATMENT AND PROGRESS ON THE UNIT: Pt. is a tall, slender male in an apparent manic state, probably substance induced. Pt. disregards and refuses to consider any medication recommendations to help with his depression or anxiety. Pt. tells provider that he is "Just going to use my pot, not going to stop no matter what anyone says". Pt. does not want to answer with more than a "Yes or No". When provider asks specifics, pt. states "I don't want to get into that". Pt. is vague and purposefully not specific. Pt. is not agreeing to any treatment options, does not attend or participate in groups on the unit. Pt. refuses to even consider any medcations to help with his history of depression. Pt. vehemently rejects any rehab or support group for substance abuse issues even though highly recommended. Home meds are unknown as pt. does not know exact names or dosages. Pt. states he stopped using prescribed meds before going in to rehab. Pt. states he was upset when rehab did not give him a stronger med(BENZO) to help with his anxiety, "So I just left". Of note: UDS on admission POS for Cannabis, Cocaine MENTAL STATUS EXAMINATION ON DISCHARGE: Patient is a 30 year-old male who appears older than stated age. Pt. is dressed in his own clothes. Pt. is noted to have a steady gait. Speech: Is pressured, circumstantial, of increased rate and normal volume. Pt. is articulate, coherent and spontaneous. Language skills are intact. Thought processes: Not clear, goal directed to go home only. Pt. bears no responsibility for his substance use, nor does he see a problem with it. Thought content: Irrational, illogical, tangential. Abstract reasoning, and computation: Adequate. Description of associations: Tangential, circumstantial. Description of abnormal or psychotic thoughts: Pt. denies hallucinations, delusions, paranoia, obsessions, compulsions, homicidal or suicidal ideation. Pt. states he had been having false memories of dog bites and does not understand why. Judgment: Poor. Insight: Minimal, if any. Orientation to person, place, time and surroundings. Recent and remote memory: "Clear" per pt. Attention span and concentration: Poor. Language: Normal. Fund of knowledge: Adequate. Mood: "I am great"! Affect: Appropriate, restricted, irrational at times in attempts to fabricate/confabulate, anxious, manic. MEDICATIONS ON DISCHARGE: Pt. refuses all meds or prescriptions usually given at discharge CONDITION ON DISCHARGE: Stable, no suicidal or homicidal ideation. PLAN/FOLLOWUP ARRANGEMENTS: Pt. is to be discharged home to maternal grandparents. Pt. to follow up with PCP upon discharge. Pt. to re-start therapy , medication management services upon discharge, pt. to consider substance abuse rehab or support group upon discharge. Although these recommendations were made to patient, he flatly refused to even consider any. Pt. refuses any meds or appointment setup prior to discharge. Pt. refses any prescriptions to be written for discharge. The amount of time spent in the coordination of care for this patient was approximately 25 minutes. Vital Signs Vital Sign - Last 24 Hours 06/10/16 06/11/16 18:00 06:46 Temp 97.6 96.8 Pulse 60 53 Resp 16 16 B/P 144/78 104/56 Allergies Coded Allergies: Bee Venom (Unverified Allergy, Mild, 06/07/16) No Known Drug Allergy (Unverified Allergy, Unknown, 06/07/16) JEAN RAZA NP Jun 11, 2016 13:16
== END 2016-06-11 11:50 | disposition home or self-care (01) | DRG 751 ==
LOC: M ED 07:50 → M PSY 12:35
PROVIDERS: ADMIT Psychiatry & Neurology Psychiatry; ATTEND Psychiatry & Neurology Psychiatry
DX: F33.9 Major depressive disorder, recurrent, unspecified (principal); F14.10 Cocaine abuse, uncomplicated; M54.5 Low back pain; M25.532 Pain in left wrist; Z79.899 Other long term (current) drug therapy

== ENCOUNTER → 2018-04-18 | Outpatient (CLI) | payer MEDICAID, OTHER, SELFPAY ==
[~2018-04-18] MED LIST: IBUP200C25 PO; PAXI20TA29 PO; TRAZ-163 PO; TRAZ1TAB14 PO
--- NOTE | 2018-04-18 13:16 | REP ---
Right wrist: Four views. History: Injury. Findings: Four views of the right wrist show soft tissue swelling dorsally over the carpus. There is a tiny chip fracture of the navicular bone visible on oblique radiograph. The opposite oblique shows a tiny bone fragment adjacent to the greater multangular. No other fracture is seen. Impression: Soft-tissue swelling about the carpus. Chip fracture of the proximal pole of the navicular bone. Electronically Signed by Noel Jay MD 04/18/2018 02:33 P
--- NOTE | 2018-04-18 13:22 | REP ---
RIGHT HAND COMPLETE: 04/18/2018. Clinical history: Right hand, wrist, fell off ladder. Swelling with decreased range of motion hand and wrist. Findings: There is prominent soft tissue swelling about the third digit along the middle and proximal phalanges. I do not see a visible or displaced fracture, avulsion or subluxation. The IP, MCP joints show only minimal degenerative change at the thumb MCP. There is no evidence of fracture of the metacarpals. Appears to be avulsion fracture at the dorsal and radiad aspect of the waist of the scaphoid. This also a tiny ossific density adjacent to the greater multangular bone could be old or new avulsion. The carpal bones and the joint spaces were intact. Distal radius and ulna intact. Impression: 1. Appears to be an avulsion off the dorsal and radiad aspect of the scaphoid and tiny ossific density adjacent to the peripheral margin of the greater multangular bone. Soft tissue swelling noted there. No other significant bony finding. 2. Swelling over the third digit along its proximal and middle phalanges without visible avulsion or fracture. Electronically Signed by Justino Guerra MD 04/18/2018 04:50 P
== END ==
LOC: M LRY 10:58
PROVIDERS: ATTEND Physician Assistant
DX: M79.89 Other specified soft tissue disorders (principal); S62.031A Displaced fracture of proximal third of navicular [scaphoid] bone of right wrist, initial encounter for closed fracture; W11.XXXA Fall on and from ladder, initial encounter; Y92.9 Unspecified place or not applicable

== ENCOUNTER → 2021-07-27 | Outpatient (CLI) | payer MEDICAID ==
[~2021-07-27] MED LIST changes: -TRAZ-163 PO; +TRAZ-257 PO
== END ==
LOC: M OUTALCOH 08:33
PROVIDERS: ATTEND Psychiatry & Neurology Psychiatry
DX: Z13.9 Encounter for screening, unspecified (principal)

== ENCOUNTER 2021-08-09 12:55 | Outpatient (RCR) | payer MEDICAID | END 2021-08-10 | LOC: M OUTALCOH 12:55 | PROVIDERS: ATTEND Psychiatry & Neurology Psychiatry | DX: F12.10 Cannabis abuse, uncomplicated (principal) ==

== ENCOUNTER → 2021-12-08 | Outpatient (CLI) | payer MEDICAID | LOC: M OUTALCOH 08:45 | PROVIDERS: ATTEND Psychiatry & Neurology Psychiatry | DX: F12.10 Cannabis abuse, uncomplicated (principal); F15.10 Other stimulant abuse, uncomplicated ==

== ENCOUNTER → 2022-01-10 | Outpatient (RCR) | payer MEDICAID | LOC: M OUTALCOH 12-18 08:00 | PROVIDERS: ATTEND Psychiatry & Neurology Psychiatry | DX: F12.10 Cannabis abuse, uncomplicated (principal); F15.10 Other stimulant abuse, uncomplicated ==

== ENCOUNTER 2022-02-05 11:00 | Outpatient (RCR) | payer MEDICAID | END 2022-02-09 | LOC: M OUTALCOH 11:00 | PROVIDERS: ATTEND Psychiatry & Neurology Psychiatry | DX: F15.10 Other stimulant abuse, uncomplicated (principal); F12.10 Cannabis abuse, uncomplicated ==

== ENCOUNTER 2022-03-07 09:39 | Outpatient (RCR) | payer MEDICAID | END 2022-03-12 | LOC: M OUTALCOH 09:39 | PROVIDERS: ATTEND Psychiatry & Neurology Psychiatry | DX: F12.10 Cannabis abuse, uncomplicated (principal); F15.10 Other stimulant abuse, uncomplicated ==

== ENCOUNTER 2022-03-14 10:24 | Outpatient (RCR) | payer MEDICAID | END 2022-04-11 | LOC: M OUTALCOH 10:24 | PROVIDERS: ATTEND Psychiatry & Neurology Psychiatry | DX: F15.10 Other stimulant abuse, uncomplicated (principal); F12.10 Cannabis abuse, uncomplicated ==

== ENCOUNTER → 2022-04-11 | Outpatient (RCR) | payer MEDICAID | LOC: M OUTALCOH 03-13 10:48 | PROVIDERS: ATTEND Psychiatry & Neurology Psychiatry | DX: F15.10 Other stimulant abuse, uncomplicated (principal); F12.10 Cannabis abuse, uncomplicated ==

== ENCOUNTER 2022-05-02 14:00 | Outpatient (RCR) | payer MEDICAID ==
[~2022-05-02 14:00] MED LIST changes: -PAXI20TA29 PO; +PAXI20TA30 PO
== END 2022-05-12 ==
LOC: M OUTALCOH 14:00
PROVIDERS: ATTEND Psychiatry & Neurology Psychiatry
DX: F12.10 Cannabis abuse, uncomplicated (principal); F15.10 Other stimulant abuse, uncomplicated

== ENCOUNTER 2022-05-23 13:48 | Outpatient (RCR) | payer MEDICAID | END 2022-06-12 | LOC: M OUTALCOH 13:48 | PROVIDERS: ATTEND Psychiatry & Neurology Psychiatry | DX: F12.10 Cannabis abuse, uncomplicated (principal); F15.10 Other stimulant abuse, uncomplicated ==

== ENCOUNTER → 2022-06-14 | Outpatient (CLI) | payer MEDICAID | LOC: M OUTALCOH 09:12 | PROVIDERS: ATTEND Psychiatry & Neurology Psychiatry | DX: Z02.9 Encounter for administrative examinations, unspecified (principal) ==

== ENCOUNTER → 2022-09-13 | Outpatient (CLI) | payer MEDICAID | LOC: M OUTALCOH 08:55 | PROVIDERS: ATTEND Psychiatry & Neurology Psychiatry | DX: F10.10 Alcohol abuse, uncomplicated (principal) ==

== ENCOUNTER → 2022-10-10 | Outpatient (RCR) | payer MEDICAID | LOC: M OUTALCOH 09-21 13:00 | PROVIDERS: ATTEND Psychiatry & Neurology Psychiatry | DX: F15.20 Other stimulant dependence, uncomplicated (principal); F12.20 Cannabis dependence, uncomplicated ==

== ENCOUNTER 2022-11-01 09:00 | Outpatient (RCR) | payer MEDICAID | END 2022-11-09 | LOC: M OUTALCOH 09:00 | PROVIDERS: ATTEND Psychiatry & Neurology Psychiatry | DX: F15.20 Other stimulant dependence, uncomplicated (principal); F12.20 Cannabis dependence, uncomplicated ==

== ENCOUNTER 2024-12-02 19:58 | Emergency (ER) | payer MEDICAID, OTHER ==
[~2024-12-02] VITALS: Ht 190.5 cm; Wt 84.1 kg
[2024-12-02 20:03] VITALS: BP 136/95; TEMP 97.7; O2SAT 100
== END 2024-12-02 22:04 | disposition left against medical advice (07) ==
LOC: M ED 19:58
DX: Z53.21 Procedure and treatment not carried out due to patient leaving prior to being seen by health care provider (principal)